=== PATIENT | female | born 1940 | race Caucasian/White ===

== ENCOUNTER 2017-02-05 14:16 | Observation (INO) ==
[2017-02-05] MEDS ORDERED: ASPIRIN 325 MG TABLET PO STA (16:53)
[2017-02-05] MEDS ORDERED: ONDANSETRON 4 MG/2 ML VIAL IV STA (16:53)
[2017-02-05] MEDS ORDERED: NITROGLYCERIN 2% OINT 1 INCH/GM PACK TOP STA (16:53)
[2017-02-05] MEDS ORDERED: MORPHINE 2 MG/1 ML SYRINGE IV STA (16:53)
[2017-02-05] MEDS ORDERED: MORPHINE 2 MG/1 ML SYRINGE ONE (17:15)
[2017-02-05] MEDS ORDERED: NITROGLYCERIN 2% OINT 1 INCH/GM PACK TOP ONE (17:15)
[2017-02-05] MEDS ORDERED: ASPIRIN 325 MG TABLET ONE (17:15)
[2017-02-05] MEDS ORDERED: ONDANSETRON 4 MG/2 ML VIAL ONE (17:15)
--- NOTE | 2017-02-05 17:15 | Emergency Department Note ---
Teto Vences Gwan, am scribing for, and in the presence of, Good Jean-Baptiste MD 17 :12. Estiven Vences Charles R, MD, personally performed the services described in this documentation, ascribed by Joao Irene in my presence, and it is both accurate and complete 715 . Arrival - Arrival Chief Complaint: Chest Pain Stated Complaint: pain around heart ED Nursing Triage Note: pt reports a squeezing type pain below breasts that started four days ago that radiates into her back. pt reports some vomiting and diarrhea over the weekend. was seen at clinic this morning and had an ekg and told to go to er. Mode of Arrival: Ambulatory Limitations: No Limitations Source: Patient, Old Records Reviewed, RN Notes Reviewed - History of Present Illness HPI Narrative: Patient is a 76 y/o female who presents to the ED with a c/o squeezing chest pain with an onset 5 days ago. Pt has a PMHx of CAD, NIDDM, stent and HTN. Patient stated that her pain begins on both of her sides and radiates to her chest just below her breast and to her back. She describes this pain as intermittent and severe. She continued to note that the discomfort is worse when she lays flat and when she takes a deep breathe. Patient stated that she has taken Maalox and baking soda to help relieve discomfort with no relief. Her associated sxs have been V/D. She reports that she has f/u with her PCP this morning and has received an EKG. S/P results at PCP office, she was prompted to report to ED for further evaluation. Patient confirmed that she is followed by Dr. Hess and she denies any hx of heart attack. During exam, pt was awake and alert and did not appear to be in any distress. Onset (ago): day(s) Consistency: constant Severity: moderate Allergies/Adverse Reactions: Allergies Allergy/AdvReac Type Severity Reaction Status Date / Time No Known Allergies Allergy Unverified 04/14/15 07:56 Home Medications: Home Medications Medication Instructions Recorded Confirmed Type Clopidogrel [Plavix] 75 mg PO DAILY 04/14/15 02/05/17 History Losartan/Hydrochlorothiazide 100 mg PO DAILY 04/14/15 02/05/17 History [Losartan-Hctz 100-12.5 mg Tab] Metoprolol Tartrate 100 mg PO BID 04/14/15 02/05/17 History Insulin Glargine,Hum.rec.anlog 60 unit SUBCUT DAILY 02/05/17 02/05/17 History [Toujeo SoloStar] Isosorbide Mononitrate [Isosorbide 30 mg PO QAM 02/05/17 02/05/17 History Mononitrate ER] Linagliptin [Tradjenta] 5 mg PO DAILY 02/05/17 02/05/17 History Nitroglycerin Sl Tab [Nitrostat] 0.4 mg SL Q5M PRN 02/05/17 02/05/17 History Potassium Chloride 8 meq PO DAILY 02/05/17 02/05/17 History Pregabalin [Lyrica] 50 mg PO DAILY 02/05/17 02/05/17 History glipiZIDE XL [Glucotrol Xl] 10 mg PO BID 02/05/17 02/05/17 History metFORMIN [Glucophage] 1,000 mg PO BID 02/05/17 02/05/17 History Review of System - Review of System 12 point system: reviewed and no additional remarkable complaints except as stated - Review of System Constitutional: Absent: chills, fever Eyes: Absent: discharge, pain Head/Ears/Nose/Throat: Absent: earache Respiratory: Absent: cough Cardiovascular: Present: as per HPI, chest pain Gastrointestinal: Present: as per HPI, vomiting, diarrhea. Absent: abdominal pain Genitourinary female: Absent: abnormal menses, dysuria Musculoskeletal: Absent: arm pain, back pain, leg pain, neck pain Skin: Absent: rash, lesions Neurological: Absent: headache, weakness Psychiatric: Absent: anxiety, depression Medical,Surgical,& Family Hx - Medical History Cardio: History of: CAD, Hypertension Endocrine: History of: Diabetes Mellitus (NIDDM) Genitourinary: History of: Recurring Urinary Tract Infections - Surgical History Cardiac Surgeries: Sugical HX of: Cardiac Catheterization (stent x 1) Abdominal Surgeries: Surgical HX of: Appendectomy, Cholecystectomy Reproductive Surgeries: Surgical HX of;: Hysterectomy - Social History Smoking Status: Never smoker Exam Vital Signs: Vital Signs Temperature 98.1 F 02/05/17 16:06 Pulse Rate 77 02/05/17 16:06 Respiratory Rate 18 02/05/17 16:06 Blood Pressure 151/78 02/05/17 16:06 O2 Sat by Pulse Oximetry 97 02/05/17 14:47 - General General appearance: alert, in no apparent distress - Head Head exam: Present: atraumatic, normocephalic - Eye Eye exam: Present: normal appearance, PERRL, EOMI - ENT ENT exam: Present: normal oropharynx, mucous membranes moist, TM's normal bilaterally, normal external ear exam - Neck Neck exam: Present: full ROM, trachea midline. Absent: tenderness - Chest Chest inspection: Present: symmetric chest wall rise. Absent: tenderness - Respiratory Respiratory exam: Present: normal lung sounds bilaterally. Absent: respiratory distress - Cardiovascular Cardiovascular exam: Present: regular rate, normal rhythm, normal heart sounds. Absent: murmur - Abdominal Exam Abdominal exam: Present: soft, normal bowel sounds. Absent: distention, tenderness - Extremities Exam Extremities exam: Present: full ROM, other (+1 edema bilateraly to LE). Absent : tenderness - Back Exam Back exam: Present: full ROM, tenderness (tenderness to T-12 area) - Neurological Exam Neurological exam: Present: alert, oriented X3, CN II-XII intact. Absent: motor sensory deficit - Psychiatric Psychiatric exam: Present: normal affect, normal mood - Skin Skin exam: Present: warm, dry, intact, normal color Course - Consultations Consultation #1: Hospitalist will admit patient Time: 20:08 Results - Labs CBC & BMP: 02/05/17 17:41 02/05/17 17:41 Lab Results: I have reviewed the patients labs Labs: Laboratory Tests 02/05/17 02/05/17 02/05/17 17:41 17:41 17:41 WBC 6.6 RBC 4.99 Hgb 11.5 L Hct 37.8 MCV 75.8 L MCH 23 L MCHC 30.4 L RDW 18.0 H Plt Count 248 INR 1.0 PT Patient/Control Mix 10.2 Sodium 144 Potassium 4.0 Chloride 107 Carbon Dioxide 29 BUN 15 Creatinine 1.00 Glucose 148 H Troponin I Lipase 178.0 Laboratory Tests 02/05/17 17:41 Troponin I 0.064 H Laboratory Tests 02/05/17 02/05/17 02/05/17 17:41 17:41 17:41 Sodium 144 Potassium 4.0 Chloride 107 Carbon Dioxide 29 BUN 15 Creatinine 1.00 Glucose 148 H Troponin I 0.064 H B-Natriuretic Peptide 232 H Lipase 178.0 Disposition Clinical Impression: Chest pain Case discussed with: patient, patient's family Disposition: Still a Patient Condition: Stable Time of Disposition: 20:08
[2017-02-05 17:59] LABS: Basophils # 0.1 10*3/uL (0.0-0.2); Basophils % 0.8 % (0.0-0.8); Eosinophils # 0.2 10*3/uL (0.0-0.87); Eosinophils % 3.2 % (0.00-10.9); Hematocrit 37.8 VOL% (35.7-47.0); Hemoglobin 11.5 GM/DL (12.0-16.0); Immature Granulocytes % 0.5 %; Immature Granulocytes Absolute 0.03 #; Lymphocytes # 2.6 10*3/uL (1.4-4.0); Lymphocytes % 40.3 % (21.3-54.2); Mean Corpuscular HGB Conc 30.4 GM/DL (32-36); Mean Corpuscular Hemoglobin 23 PG (27-34); Mean Corpuscular Volume 75.8 FL (87-102); Mean Platelet Volume 10.1 FL (9.6-12.0); Monocytes # 0.4 10*3/uL (0.11-0.8); Monocytes % 5.5 % (1.7-12.7); Neutrophils # 3.3 10*3/uL (1.4-7.4); Neutrophils % 49.7 % (38.7-73.9); Platelet Count 248 T/CUMM (130-400); Red Blood Count 4.99 MC/CUMM (3.8-5.5); White Blood Count 6.6 T/CUMM (4-12)
[2017-02-05 18:07] LABS: PT Patient Result 10.2 SECS
[2017-02-05 18:12] LABS: Albumin 3.7 G/DL (3.4-5.0); Bilirubin,Total 0.5 MG/DL (0.2-1.0); Calcium 9.1 MG/DL (8.5-10.1); Magnesium 1.8 MG/DL (1.8-2.4); Osmolality,Calculated 289.8 MOS/KG (273-304); Total Protein 6.6 G/DL (6.4-8.3)
[2017-02-05] MEDS ORDERED: INSULIN REGULAR 100 UNIT/ML SUBCUT ONE (20:20)
[2017-02-05] MEDS ORDERED: MORPHINE 2 MG/1 ML SYRINGE IV PRN (20:20)
[2017-02-05] MEDS ORDERED: ENOXAPARIN 40 MG/0.4 ML SYRINGE SUBCUT SCH (20:30)
--- NOTE | 2017-02-05 20:53 | XRay Report ---
XR chest 1V portable Indication: Chest pain. Chest one view: Comparison 02/05/2017. Lungs are markedly hypoinflated with diffusely coarsened interstitial markings when compared to 1213 hours. However, no focal infiltrate is seen at this time. Heart size is normal. Impression: Worsening pulmonary hypoinflation with increasing interstitial prominence of the lungs. Suspect is primarily atelectasis. PROCEDURE INTERPRETED AT [facility] DEPARTMENT OF RADIOLOGY Final Report Signed by: Mason Antonio M.D.
[2017-02-05 21:02] LABS: Risk Ratio 5.37; VLDL CHOLESTEROL 88.6 MG/DL
--- NOTE | 2017-02-05 21:16 | Hospitalist History & Physical ---
Assessment and Plan (1) Diabetes Status: Acute Current Visit: Yes (2) Hypertension Status: Acute Assessment and plan: We will admit patient our service. Patient will be admitted to telemetry. We will put in a consult for [facility] for their evaluation. 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 She has had stents in the past. Draw serial troponins and check a fasting lipid profile. Reevaluate patient in the morning and adjust plans appropriate continue home meds as appropriate Current Visit: Yes History of Present Illness Chief complaint: Chest pain History of present illness: Ms. Esposito is a 76 year old female with past medical history significant for coronary artery disease hypertension and diabetes who was in normal state of health till approximately 5 days ago. Patient's has been noticing chest pain. Is a squeezing sensation radiates around her ribs into her back. She denies diaphoresis or shortness of breath. She had an episode lasting about 20 minutes of nausea vomiting and diarrhea. She says the pains been come and go when she went to go see her nurse practitioner SHIRLEY Espana at the clinic today. Actually felt the patient needed to come up to the hospital for further evaluation. Patient has a slight abnormal normal troponin mildly elevated BNP and some mildly depressed ST segments on her EKG I was consulted to admit her Home Medications Medication Instructions Recorded Confirmed Type Clopidogrel [Plavix] 75 mg PO DAILY 04/14/15 02/05/17 History Losartan/Hydrochlorothiazide 100 mg PO DAILY 04/14/15 02/05/17 History [Losartan-Hctz 100-12.5 mg Tab] Metoprolol Tartrate 100 mg PO BID 04/14/15 02/05/17 History Insulin Glargine,Hum.rec.anlog 60 unit SUBCUT DAILY 02/05/17 02/05/17 History [Toujeo SoloStar] Isosorbide Mononitrate [Isosorbide 30 mg PO QAM 02/05/17 02/05/17 History Mononitrate ER] Linagliptin [Tradjenta] 5 mg PO DAILY 02/05/17 02/05/17 History Nitroglycerin Sl Tab [Nitrostat] 0.4 mg SL Q5M PRN 02/05/17 02/05/17 History Potassium Chloride 8 meq PO DAILY 02/05/17 02/05/17 History Pregabalin [Lyrica] 50 mg PO DAILY 02/05/17 02/05/17 History glipiZIDE XL [Glucotrol Xl] 10 mg PO BID 02/05/17 02/05/17 History metFORMIN [Glucophage] 1,000 mg PO BID 02/05/17 02/05/17 History Allergies Allergy/AdvReac Type Severity Reaction Status Date / Time No Known Allergies Allergy Unverified 04/14/15 07:56 Medical,Surgical,& Family Hx - Medical History Cardio: History of: CAD, Hypertension Endocrine: History of: Diabetes Mellitus (NIDDM) Genitourinary: History of: Recurring Urinary Tract Infections - Surgical History Cardiac Surgeries: Sugical HX of: Cardiac Catheterization (stent x 1) Abdominal Surgeries: Surgical HX of: Appendectomy, Cholecystectomy Reproductive Surgeries: Surgical HX of;: Hysterectomy - Family History Family History: Reports;: Family Cancer - Social History Smoking Status: Never smoker Frequency of Alcohol Use: None Type of Drug Use: None 12 point system: reviewed and no additional remarkable complaints except as stated Exam - Constitutional Vitals: Period Temp Pulse Resp BP Sys/Morrow Pulse Ox Last 24 Hr 98.1 F-98.1 F 77-77 18-18 151-151/78-78 97 - General General appearance: alert, in no apparent distress - Head Head exam: Present: atraumatic, normocephalic - Eye Eye exam: Present: normal appearance, PERRL, EOMI - ENT ENT exam: Present: normal oropharynx, mucous membranes moist, TM's normal bilaterally, normal external ear exam - Neck Neck exam: Present: full ROM, trachea midline. - Chest Chest inspection: Present: symmetric chest wall rise. - Respiratory Respiratory exam: Present: normal lung sounds bilaterally - Cardiovascular Cardiovascular exam: Present: regular rate, normal rhythm, normal heart sounds - Abdominal Exam Abdominal exam: Present: soft, normal bowel sounds. - Extremities Exam Extremities exam: Present: full ROM, some lower extremity edema noted - Neurological Exam Neurological exam: Present: alert, oriented X3, CN II-XII intact. - Psychiatric Psychiatric exam: Present: normal affect, normal mood - Skin Skin exam: Present: warm, dry, intact, normal color Results - Labs CBC & BMP: 02/05/17 17:41 02/05/17 17:41
[2017-02-05] MEDS: METOPROLOL TARTRATE 100 MG TABLET PO SCH (23:53)
[2017-02-06] MEDS: NITROGLYCERIN 2% OINT 1 INCH/GM PACK TOP SCH ×4 (01:18→18:11)
[2017-02-06] MEDS ORDERED: ACETAMINOPHEN 325 MG TABLET PO PRN (01:22)
--- NOTE | 2017-02-06 04:24 | EKG Report ---
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
--- NOTE | 2017-02-06 06:31 | EKG Report ---
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
--- NOTE | 2017-02-06 08:07 | EKG Report ---
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
--- NOTE | 2017-02-06 08:32 | Cardiology Consult Note ---
<Monica Fernández E - Last Filed: 02/06/17 08:12> Assessment and Plan - Time spent with patient Time spent with patient: Greater than 30 minutes (1) CAD (coronary artery disease) Status: Chronic Assessment and plan: SEE PLAN OF CARE LISTED BELOW Current Visit: Yes (2) Dyslipidemia Status: Chronic Assessment and plan: SEE PLAN OF CARE LISTED BELOW Current Visit: Yes (3) Chest pain Status: Acute Assessment and plan: SEE PLAN OF CARE LISTED BELOW Current Visit: Yes (4) Diabetes Status: Chronic Assessment and plan: SEE PLAN OF CARE LISTED BELOW Current Visit: Yes (5) Hypertension Status: Chronic Assessment and plan: SEE PLAN OF CARE LISTED BELOW Current Visit: Yes History of Present Illness - Data of Consult Patient: known to practice within the last 3 years Consult date: 02/06/17 Requesting Physician: Mason Hitchcock Primary care physician: Jenny Grier - Consult Narrative Reason for consult: chest pain, known CAD History of present illness: [employer]: DR. HESS Ms. Esposito, 76WF, routinely followed by Dr. Lizzette Hess. She was last seen in cardiology clinic December 26, 2016. Risk factors include: Known coronary artery disease, hypertension, dyslipidemia, diabetes and sedentary lifestyle. History of PSVT, microcytic anemia. Last heart catheterization took place approximately 4 years ago at [facility], requiring PCI. Records have been requested. Last stress test May 25, 2016 revealed the following: Small fixed perfusion abnormality of mild intensity in the inferolateral region. Subtle worsening of this defect with stress when compared to rest. This could be breast attenuation, although a small area of patricia-infarct ischemia cannot be completely excluded. Clinical correlation recommended. Approximately 45 years ago she felt a tightness around her anterior chest where her bra was located. She sought advice from numerous healthcare providers but could never get any answers. Ultimately went to the [facility] and was told that she has costochondritis. She was given NSAIDs and this resolved. Approximately 5 days ago, she began to experience the same type of chest discomfort radiating across her chest under her breasts, radiating to her right flank and upper back area. Described as a squeezing sensation occurring intermittently for the past 5 days. It is not associated with shortness of breath. She is tender to touch under her right and left breasts but not in the flank or upper back area. Seems to be worse when laying down and she insists that walking does not re-create the discomfort. She can identify no aggravating nor any alleviating factors. Rates the discomfort as a 7 on a scale of 1-10. Troponins 0.064 -0.053. EKG reveals nonspecific ST and T-wave abnormality. Patient also reports she has been experiencing near syncope for the past 8-6 months, primarily when walking. She would have no chest discomfort but would feel "faint". She was given isosorbide mononitrate and she considers this to be a "miracle drug". She has not had any additional near syncopal type episodes since starting. Patient does have a history of microcytic anemia. She is scheduled to see Dr. Santana in March 2017. She has been taking iron orally but quit taking several months ago. No obvious black and tarry stools or vomiting of blood. Echo has been ordered, she has received ASA, Plavix, betablocker, nitrate, ARB. Will keep NPO and further discuss with Dr. Pimentel and await additional recommendations. She is not on statin and will clarify if she has true allergy. ASSESSMENT/PLAN: 1. CHEST PAIN - we will keep NPO and discuss with Dr. Pimentel. 2. KNOWN CAD - approximately 4 years ago, at [facility], underwent stenting. Have requested records. 3. HYPERTENSION - will adjust medications accordingly during hospital stay. 4. DYSLIPIDEMIA - total cholesterol 204, HDL, 38, LDL 111, triglycerides 443. Will add medications accordingly. 5. DIABETES - holding metformin. Covering with sliding scale. 6. HISTORY OF PSVT - no PSVT noted while hospitalized. We will continue to observe and monitor. CC: Eveline Doe MD - Home Medications and Allergies Home Medications: Home Medications Medication Instructions Recorded Confirmed Type Clopidogrel [Plavix] 75 mg PO DAILY 04/14/15 02/05/17 History Losartan/Hydrochlorothiazide 100 mg PO DAILY 04/14/15 02/05/17 History [Losartan-Hctz 100-12.5 mg Tab] Metoprolol Tartrate 100 mg PO BID 04/14/15 02/05/17 History Insulin Glargine,Hum.rec.anlog 60 unit SUBCUT DAILY 02/05/17 02/05/17 History [Doris Roper] Isosorbide Mononitrate [Isosorbide 30 mg PO QAM 02/05/17 02/05/17 History Mononitrate ER] Linagliptin [Tradjenta] 5 mg PO DAILY 02/05/17 02/05/17 History Nitroglycerin Sl Tab [Nitrostat] 0.4 mg SL Q5M PRN 02/05/17 02/05/17 History Potassium Chloride 8 meq PO DAILY 02/05/17 02/05/17 History Pregabalin [Lyrica] 50 mg PO DAILY 02/05/17 02/05/17 History glipiZIDE XL [Glucotrol Xl] 10 mg PO BID 02/05/17 02/05/17 History metFORMIN [Glucophage] 1,000 mg PO BID 02/05/17 02/05/17 History Allergies/Adverse Reactions: Allergies Allergy/AdvReac Type Severity Reaction Status Date / Time No Known Allergies Allergy Unverified 04/14/15 07:56 Review of systems: REVIEW OF SYSTEMS: - Constitutional Constitutional: Present: Fatigue, near syncope. Absent: anorexia, night sweats - EENT Eyes: Absent: blurry vision, loss of vision, diplopia Ears: Absent: decreased hearing, ear pain, ear discharge - Cardiovascular Cardiovascular: Present: chest pain at various times without dyspnea on exertion. Occasional right foot edema, none recent occasional palpitations. Absent: chest pain with deep breath, claudication - Respiratory Respiratory: Denies: MCCAU[place], cough. Absent: wheezing, hemoptysis, change in phlegm color - Gastrointestinal Gastrointestinal: Denies: constipation. Absent: abdominal pain, hematemesis, hematochezia, melena, change in bowel habits, nausea - Genitourinary Genitourinary: Absent: difficulty urinating, dysuria, urinary hesitancy, flank pain - Musculoskeletal Musculoskeletal: Present: back pain Absent: joint swelling, muscle cramps, muscle weakness - Neurological Neurological: Present: normal gait without frequent falls. Absent: dizziness, hemiparesis - Psychiatric Psychiatric: Absent: anxiety, depression, difficulty concentrating - Endocrine Endocrine: Present: fatigue. Absent: cold intolerance, heat intolerance, polyuria, polyphagia, polydipsia - Hematologic/Lymphatic Hematologic/Lymphatic: Present: easy bruising. Absent: easy bleeding -Integumentary Integumentary: Absent: lesions, rashes, skin breakdown Medical,Surgical,& Family Hx - Medical History Cardio: History of: CAD, Hypertension Endocrine: History of: Diabetes Mellitus (NIDDM) Genitourinary: History of: Recurring Urinary Tract Infections Musculoskeletal: History of: Back/Neck Problems (cervical fusions) - Surgical History Cardiac Surgeries: Sugical HX of: Cardiac Catheterization (stent x 1) Thoracic Surgeries: Patient denies;: Lobectomy Neurologic Surgeries: Patient denies: Neurologic Surgery Abdominal Surgeries: Surgical HX of: Appendectomy, Cholecystectomy Reproductive Surgeries: Surgical HX of;: Section (x 3), Hysterectomy - Family History Family History: Reports;: Family Cancer - Social History Smoking Status: Never smoker Have you smoked in the last 12 months: No Frequency of Alcohol Use: None Type of Drug Use: None Marital Status: Lives With:: Alone Functional capacity: independent ambulation Physical Examination Vital Signs Temp Pulse Resp BP Pulse Ox 98.1 F 77 18 151/78 97 02/05/17 14:47 02/05/17 14:47 02/05/17 14:47 02/05/17 14:47 02/05/17 14:47 General: [Appears well with no apparent distress.] [Pleasant and cooperative. ] [Appears comfortable.] HEENT: [PERRL, normocephalic, atraumatic. Mucous membranes moist. No jaundice noted. Conjunctiva moist and clear, sclerae anicteric] Neck: No JVD/HJR, no thyromegaly or lymphadenopathy noted. No carotid bruit appreciated Cardiac: [Regular rate and rhythm.] [No obvious murmur rub or gallop.] Lungs: [Clear to auscultation without accessory muscle use to assist the respiratory pattern.] Not requiring oxygen Abdomen: Soft, bowel sounds normoactive. Nontender and nondistended. No abdominal bruit or thrill noted. No masses noted. Musculoskeletal: No fluid collection. Decreased range of motion is noted. Extremities: No clubbing, cyanosis noted. [ No edema noted.] Upper extremity pulses 2+. Lower extremity pulses 2+. Capillary refill less than 3 seconds. Skin: No unusual lesions or rashes. No skin breakdown appreciated. Neuro: Awake, alert and oriented 3. Moves all extremities well without hemiparesis or paralysis. No essential tremor is appreciated. Result/EKG - Labs CBC & BMP: 02/05/17 17:41 02/05/17 17:41 Lab Results: I have reviewed the past 24 hour labs Labs: Laboratory Results - last 24 hr 02/05/17 02/05/17 02/05/17 17:41 17:41 17:41 WBC RBC Hgb Hct MCV MCH MCHC RDW Plt Count MPV Neut % (Auto) Lymph % (Auto) Hoke % (Auto) Eos % (Auto) Baso % (Auto) Neut # (Auto) Lymph # (Auto) Hoke # (Auto) Eos # (Auto) Baso # (Auto) Immature Gran % Nucleated RBC % Immature Gran # Nucleated RBCs # INR 1.0 PT Patient/Control Mix 10.2 Sodium 144 Potassium 4.0 Chloride 107 Carbon Dioxide 29 Anion Gap 12.0 BUN 15 Creatinine 1.00 GFR Calculation 59 BUN/Creatinine Ratio 15.00 Glucose 148 H Calculated Osmolality 289.8 Calcium 9.1 Magnesium 1.8 Total Bilirubin 0.50 AST 24 ALT 23 Alkaline Phosphatase 71 Troponin I B-Natriuretic Peptide 232 H Total Protein 6.6 Albumin 3.7 Globulin 2.9 Albumin/Globulin Ratio 1.2 Triglycerides Cholesterol LDL Cholesterol VLDL Cholesterol HDL Cholesterol Heart Disease Risk Ratio Lipase 178.0 02/05/17 02/05/17 02/05/17 17:41 17:41 17:41 WBC 6.6 RBC 4.99 Hgb 11.5 L Hct 37.8 MCV 75.8 L MCH 23 L MCHC 30.4 L RDW 18.0 H Plt Count 248 MPV 10.1 Neut % (Auto) 49.7 Lymph % (Auto) 40.3 Hoke % (Auto) 5.5 Eos % (Auto) 3.2 Baso % (Auto) 0.8 Neut # (Auto) 3.3 Lymph # (Auto) 2.6 Hoke # (Auto) 0.4 Eos # (Auto) 0.2 Baso # (Auto) 0.1 Immature Gran % 0.5 Nucleated RBC % 0.0 Immature Gran # 0.03 Nucleated RBCs # 0.00 INR PT Patient/Control Mix Sodium Potassium Chloride Carbon Dioxide Anion Gap BUN Creatinine GFR Calculation BUN/Creatinine Ratio Glucose Calculated Osmolality Calcium Magnesium Total Bilirubin AST ALT Alkaline Phosphatase Troponin I 0.064 H B-Natriuretic Peptide Total Protein Albumin Globulin Albumin/Globulin Ratio Triglycerides 443 H Cholesterol 204 H LDL Cholesterol 111.0 VLDL Cholesterol 88.6 HDL Cholesterol 38 L Heart Disease Risk Ratio 5.37 Lipase 02/05/17 02/05/17 20:45 23:27 WBC RBC Hgb Hct MCV MCH MCHC RDW Plt Count MPV Neut % (Auto) Lymph % (Auto) Hoke % (Auto) Eos % (Auto) Baso % (Auto) Neut # (Auto) Lymph # (Auto) Hoke # (Auto) Eos # (Auto) Baso # (Auto) Immature Gran % Nucleated RBC % Immature Gran # Nucleated RBCs # INR PT Patient/Control Mix Sodium Potassium Chloride Carbon Dioxide Anion Gap BUN Creatinine GFR Calculation BUN/Creatinine Ratio Glucose Calculated Osmolality Calcium Magnesium Total Bilirubin AST ALT Alkaline Phosphatase Troponin I 0.070 H 0.053 H D B-Natriuretic Peptide Total Protein Albumin Globulin Albumin/Globulin Ratio Triglycerides Cholesterol LDL Cholesterol VLDL Cholesterol HDL Cholesterol Heart Disease Risk Ratio Lipase - Diagnostic Findings Procedure: Chest x-ray: report reviewed by me - EKG EKG results: interpreted by me EKG shows: sinus rhythm <Yanna Pimentel - Last Filed: 02/06/17 08:48> Assessment and Plan - Time spent with patient Time spent with patient: Greater than 30 minutes (exam, interview, documentation , discussion with other provides and orders.) (1) GERD (gastroesophageal reflux disease) Status: Acute Assessment and plan: This is new onset and associated with what honestly sounds like atypical chest pain with EKG changes she needs left heart cath. [id number] preparations for reflux did not seem to alter her pain nor did sublingual nitroglycerin Current Visit: Yes (2) Chest pain Status: Acute Current Visit: Yes Qualifiers: Ischemic chest pain type: unstable angina pectoris (3) Diabetes Status: Acute Current Visit: Yes (4) Hypertension Status: Chronic Current Visit: Yes Qualifiers: Hypertension type: essential hypertension Qualified Code(s): I10 - Essential (primary) hypertension (5) CAD (coronary artery disease) Status: Chronic Current Visit: Yes Qualifiers: Coronary Disease-Associated Artery/Lesion type: pilot station artery [place] vs. transplanted heart: pilot station heart Associated angina: with unstable angina Qualified Code(s): I25.110 - Atherosclerotic heart disease of [place] coronary artery with unstable angina pectoris (6) Dyslipidemia Status: Chronic Current Visit: Yes History of Present Illness - Consult Narrative History of present illness: Ms. Esposito is a 76 year old female whom I saw and examined with Ms. Monica Fernández NP. The patient is a very confusing story as outlined above. She has had at sometimes what sounds like typical pain at sometimes what sounds like atypical pain but she has an abnormal EKG and known coronary artery disease this is all on the background of new onset "heartburn" which she has never had a tightness around her chest like her bra was too tight. It is very clear that we must remove coronary artery disease from the cause of her symptoms. She had PCI 4 years ago at [facility] she does not have her stent card we do not have those records. This does not appear to be related to exertion but she has an equivocal stress test and initially long-acting nitrates made her feel better. I discussed with the patient and recommended left heart catheterization and possible PCI she is agreeable. She has EKG changes that would suggest most likely high lateral changes they are seen in lead I and aVL but also seen in lead II. CC: Eveline Doe MD Review of systems: Chest pain as above in the history of present illness does not necessarily seem to be related to exertion but is been nocturnal and not let her sleep for the last sleep for the last several nights. - Cardiovascular Cardiovascular: Present: chest pain at rest, chest pain with activity - Gastrointestinal Gastrointestinal: Present: abdominal pain, diarrhea, nausea, vomiting Physical Examination Vital Signs Temp Pulse Resp BP Pulse Ox 98.1 F 77 18 151/78 97 02/05/17 14:47 02/05/17 14:47 02/05/17 14:47 02/05/17 14:47 02/05/17 14:47 I agree with the above Result/EKG - Labs CBC & BMP: 02/05/17 17:41 02/05/17 17:41 Labs: Laboratory Results - last 24 hr 02/05/17 02/05/17 02/05/17 17:41 17:41 17:41 WBC RBC Hgb Hct MCV MCH MCHC RDW Plt Count MPV Neut % (Auto) Lymph % (Auto) Hoke % (Auto) Eos % (Auto) Baso % (Auto) Neut # (Auto) Lymph # (Auto) Hoke # (Auto) Eos # (Auto) Baso # (Auto) Immature Gran % Nucleated RBC % Immature Gran # Nucleated RBCs # INR 1.0 PT Patient/Control Mix 10.2 Sodium 144 Potassium 4.0 Chloride 107 Carbon Dioxide 29 Anion Gap 12.0 BUN 15 Creatinine 1.00 GFR Calculation 59 BUN/Creatinine Ratio 15.00 Glucose 148 H POC Glucose Calculated Osmolality 289.8 Calcium 9.1 Magnesium 1.8 Total Bilirubin 0.50 AST 24 ALT 23 Alkaline Phosphatase 71 Troponin I B-Natriuretic Peptide 232 H Total Protein 6.6 Albumin 3.7 Globulin 2.9 Albumin/Globulin Ratio 1.2 Triglycerides Cholesterol LDL Cholesterol VLDL Cholesterol HDL Cholesterol Heart Disease Risk Ratio Lipase 178.0 02/05/17 02/05/17 02/05/17 17:41 17:41 17:41 WBC 6.6 RBC 4.99 Hgb 11.5 L Hct 37.8 MCV 75.8 L MCH 23 L MCHC 30.4 L RDW 18.0 H Plt Count 248 MPV 10.1 Neut % (Auto) 49.7 Lymph % (Auto) 40.3 Hoke % (Auto) 5.5 Eos % (Auto) 3.2 Baso % (Auto) 0.8 Neut # (Auto) 3.3 Lymph # (Auto) 2.6 Hoke # (Auto) 0.4 Eos # (Auto) 0.2 Baso # (Auto) 0.1 Immature Gran % 0.5 Nucleated RBC % 0.0 Immature Gran # 0.03 Nucleated RBCs # 0.00 INR PT Patient/Control Mix Sodium Potassium Chloride Carbon Dioxide Anion Gap BUN Creatinine GFR Calculation BUN/Creatinine Ratio Glucose POC Glucose Calculated Osmolality Calcium Magnesium Total Bilirubin AST ALT Alkaline Phosphatase Troponin I 0.064 H B-Natriuretic Peptide Total Protein Albumin Globulin Albumin/Globulin Ratio Triglycerides 443 H Cholesterol 204 H LDL Cholesterol 111.0 VLDL Cholesterol 88.6 HDL Cholesterol 38 L Heart Disease Risk Ratio 5.37 Lipase 02/05/17 02/05/17 02/06/17 20:45 23:27 08:11 WBC RBC Hgb Hct MCV MCH MCHC RDW Plt Count MPV Neut % (Auto) Lymph % (Auto) Hoke % (Auto) Eos % (Auto) Baso % (Auto) Neut # (Auto) Lymph # (Auto) Hoke # (Auto) Eos # (Auto) Baso # (Auto) Immature Gran % Nucleated RBC % Immature Gran # Nucleated RBCs # INR PT Patient/Control Mix Sodium Potassium Chloride Carbon Dioxide Anion Gap BUN Creatinine GFR Calculation BUN/Creatinine Ratio Glucose POC Glucose 146 H Calculated Osmolality Calcium Magnesium Total Bilirubin AST ALT Alkaline Phosphatase Troponin I 0.070 H 0.053 H D B-Natriuretic Peptide Total Protein Albumin Globulin Albumin/Globulin Ratio Triglycerides Cholesterol LDL Cholesterol VLDL Cholesterol HDL Cholesterol Heart Disease Risk Ratio Lipase - EKG EKG results: interpreted by me EKG shows: sinus rhythm (TWI that is new in I, aVL and II)
[2017-02-06] MEDS ORDERED: POTASSIUM CHLORIDE RIDER 10 MEQ in PREMIX 1 EACH IV PRN (08:40)
[2017-02-06] MEDS ORDERED: MAGNESIUM SULF RIDER 2 GM in PREMIX 1 EACH IV PRN (08:40)
[2017-02-06] MEDS ORDERED: diphenhydrAMINE CAP 25 MG CAPSULE PO ONE (08:40)
[2017-02-06] MEDS ORDERED: DIAZEPAM 5 MG TABLET PO ONE (08:40)
[2017-02-06] MEDS ORDERED: hydroCHLOROthiazide 12.5 MG CAPSULE PO SCH (09:00)
[2017-02-06] MEDS ORDERED: HEPARIN/NACL 0.9% 2 UNITS/ML 1,000 ML IV ONE (09:50)
[2017-02-06] MEDS ORDERED: LIDOCAINE 1% 20 ML VIAL ONE (09:50)
[2017-02-06] MEDS: LOSARTAN 50 MG TABLET PO SCH (09:54)
[2017-02-06] MEDS: PREGABALIN 50 MG CAPSULE PO SCH (09:54)
[2017-02-06] MEDS: POTASSIUM CHLORIDE 8 MEQ CAPSULE PO SCH (09:54)
[2017-02-06] MEDS: PANTOPRAZOLE 40 MG TABLET PO SCH (09:55)
[2017-02-06] MEDS: CLOPIDOGREL 75 MG TABLET PO SCH (09:55)
[2017-02-06] MEDS: ISOSORBIDE MONONITRATE 30 MG TABLET PO SCH (09:55)
[2017-02-06] MEDS: SODIUM CHLORIDE 0.45% 1,000 ML IV SCH (09:55)
[2017-02-06] MEDS: ASPIRIN EC 325 MG TABLET PO SCH (09:55)
[2017-02-06] MEDS: METOPROLOL TARTRATE 100 MG TABLET PO SCH ×2 (09:55→21:13)
[2017-02-06] MEDS ORDERED: MIDAZOLAM 2 MG/2 ML VIAL ONE (10:13)
[2017-02-06] MEDS ORDERED: HYDROmorphone 2 MG/1 ML VIAL ONE (10:13)
[2017-02-06] MEDS ORDERED: VERAPAMIL 5 MG/2 ML VIAL ONE (10:29)
[2017-02-06] MEDS ORDERED: BIVALIRUDIN 250 MG VIAL IV ONE (10:49)
[2017-02-06] MEDS ORDERED: NITROGLYCERIN DRIP 50 MG/250 ML BOTTLE IV ONE (11:21)
[2017-02-06] MEDS ORDERED: CLOPIDOGREL 300 MG TABLET ONE (11:33)
--- NOTE | 2017-02-06 11:38 | Cardiac Catheterization ---
Date of Procedure:: 02/06/17 Procedure: CLINICAL SUMMARY: The patient has known coronary artery disease and presented with symptoms of unstable angina. She is undergoing cardiac catheterization for definitive coronary artery assessment and possible revascularization. PROCEDURES PERFORMED: 1. Right femoral percutaneous arteriotomy 2. Left heart catheterization. 3. Resting hemodynamics. 4. Left ventriculography. 5. Coronary arteriography. 6. Right femoral arteriogram. 7. Angio-Seal closure of the right femoral artery. DESCRIPTION OF PROCEDURE: After obtaining informed consent, the patient was brought to the cardiac catheterization lab where the right groin was prepped and draped in the usual sterile manner. Using IV sedation, local anesthesia, and Modified Seldinger technique, a needle was placed in the right femoral artery and a sheath was positioned without difficulty. A left coronary catheter was advanced over a guidewire under fluoroscopic control to the ascending aorta where angiograms of the left coronary artery were undertaken in multiple views. After adequate angiograms, this catheter was withdrawn and a right coronary catheter was advanced over a guidewire under fluoroscopic control to the ascending aorta with angiograms of the RCA were undertaken in numerous projections. After adequate angiograms, this catheter was removed and a pigtail ventriculographic catheter was advanced over a guidewire under fluoroscopic control to the aortic valve and left ventricular pressures were measured. After adequate pressures were measured, this catheter was used to perform left ventriculography in the [place]AL[place] projection. This catheter was then withdrawn under hemodynamic monitoring and removed from the patient. We then proceeded directly to percutaneous coronary intervention. We engaged the left main coronary artery with a EBU 3.75 interventional guide. We passed a PT Graphix wire beyond the area of stenosis in the circumflex artery and first obtuse marginal branch. We then performed balloon angioplasty with a 3.0 x 12 mm [place] angioplasty balloon in the first obtuse marginal branch and in the proximal to mid circumflex artery. We then placed a 3.0 x 12 mm Xience alpine drug-eluting stent in the proximal segment of the first obtuse marginal branch. The distal portion of the stent was placed in overlapping fashion with a previously placed obtuse marginal stent. An excellent angiographic result was achieved with no significant residual stenosis. We then placed a 3.25 x 12 mm Xience alpine drug-eluting stent in the proximal to mid circumflex coronary artery. An excellent angiographic result was achieved with no significant residual stenosis at the site of intervention. We then pulled back our coronary wire and advanced it down the left anterior descending coronary artery to facilitate intervention on the LAD. We placed a 2.75 x 18 mm Xience alpine drug-eluting stent in this vessel which was inflated to 15 mmHg. Follow-up angiography showed an excellent result at the site of intervention. There was some mild residual stenosis just distal to the stent. We used the stent balloon to perform balloon inflation at the distal and proximal edges of the stent with a good angiographic result. After the intervention, a right femoral arteriogram was performed showing adequate sheath placement for closure device deployment. The sheath was then removed and an Angio-Seal device was used to obtain hemostasis. The patient was transferred back to the room having suffered no immediate complications. HEMODYNAMICS: See the accompanying data sheet. CORONARY ARTERIOGRAPHY: LEFT MAIN: The left main coronary artery is a large caliber vessel, which bifurcates into the left anterior descending and left circumflex coronary arteries. The left main coronary artery has no significant obstructive disease. LEFT CIRCUMFLEX: The left circumflex coronary artery is a large-caliber vessel which gives off a large obtuse marginal branch. There is a focal 95% stenosis in the proximal to mid circumflex coronary artery. There is also a stenosis of 90% or more in the proximal segment of the first obtuse marginal branch, just proximal to a previously placed stent. LEFT ANTERIOR DESCENDING: The left anterior descending artery is a moderate to large caliber vessel which gives off for small diagonal branches proximally and a moderate-sized diagonal branch in its mid segment. There is diffuse moderate disease throughout the left anterior descending coronary artery of up to 40% proximally and up to 70% in its mid segment. There may be significant disease at the origin of 3 of the smaller diagonal branches as well, but these do not appear to be good targets for intervention. RIGHT CORONARY ARTERY: The right coronary artery is a large-caliber vessel which gives off the posterior descending artery and the posterior lateral system. There is a stenosis of about 50% in the proximal to mid right coronary artery. At the bifurcation of the posterior descending artery and posterolateral branch there is a stenosis of around 40-50%. The proximal posterior descending coronary artery has sequential 80-90% stenoses just proximal to a bifurcation point. LEFT VENTRICULOGRAPHY: Left ventricular ejection fraction is estimated at 60-65 % with normal regional wall motion. PERIPHERAL ARTERIOGRAPHY: Right femoral arteriogram shows a normal right iliofemoral artery with adequate sheath placement for closure device deployment. IMPRESSIONS: 1. Severe three-vessel coronary artery disease as described above. 2. Successful stenting of the left circumflex coronary artery system with a 3.0 x 12 mm Xience alpine drug-eluting stent placed in the obtuse marginal branch and a 3.25 x 12 mm Xience alpine drug-eluting stent placed in the proximal to mid circumflex coronary artery. 3. Successful percutaneous coronary intervention to the mid left anterior descending coronary artery with a 2.75 x 15 mm Xience alpine drug-eluting stent inflated to 18 hilda pressure. 4. Significant residual disease in the right coronary artery system as described above. 5. Preserved left ventricular systolic function. PLAN: The patient will be transferred to her room for postintervention monitoring and recovery. At some point intervention on the right coronary artery could be considered if clinically indicated. For now we will continue aggressive medical management and risk factor modification. The case was discussed with Dr. Pimentel, who also reviewed the films prior to intervention. Anesthesia: minimal conscious sedation Surgeon / Physician: Moi Miller Estimated blood loss: minimal Condition: stable Disposition: floor - Medications / Follow-up
--- NOTE | 2017-02-06 12:30 | EKG Report ---
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
--- NOTE | 2017-02-06 16:16 | Hospitalist Progress Note ---
Assessment and Plan (1) Chest pain Status: Acute Assessment and plan: s/p cardiac stent times 3 to LAD and left circumflex Current Visit: Yes (2) Diabetes Status: Acute Assessment and plan: BS stable Current Visit: Yes (3) Hypertension Status: Chronic Assessment and plan: metoprolol 100 mg po bid, losartan and isosorbide mononitrate Current Visit: Yes Qualifiers: Hypertension type: essential hypertension Qualified Code(s): I10 - Essential (primary) hypertension Hospitalist: Subjective Interval history: Saw patient before going down for heart cath. No chest pain Exam - Constitutional Vitals: Period Temp Pulse Resp BP Sys/Morrow Pulse Ox Last 24 Hr 96.0 F-98.2 F 60-100 16-20 107-150/43-76 92-100 Exam: Heart Rate-[RRR] Lungs-[CTAB] GI-[+bs soft, NT] Ext-[no edema] Neuro [Motor 5/5], [alert and oriented times 3] psych [normal mood and affect] General [no acute distress] Results - Labs CBC & BMP: 02/05/17 17:41 02/05/17 17:41 Lab Results: I have reviewed the past 24 hour labs
[2017-02-07] MEDS: SODIUM CHLORIDE 0.45% 1,000 ML IV SCH ×2 (00:32→12:01)
[2017-02-07] MEDS: NITROGLYCERIN 2% OINT 1 INCH/GM PACK TOP SCH ×3 (03:04→12:01)
[2017-02-07 05:32] LABS: Basophils % 0.3 % (0.0-0.8); Eosinophils # 0.2 10*3/uL (0.0-0.87); Eosinophils % 3.3 % (0.00-10.9); Hematocrit 34.4 VOL% (35.7-47.0); Hemoglobin 10.7 GM/DL (12.0-16.0); Immature Granulocytes % 0.3 %; Immature Granulocytes Absolute 0.02 #; Lymphocytes # 1.6 10*3/uL (1.4-4.0); Lymphocytes % 22.1 % (21.3-54.2); Mean Corpuscular HGB Conc 31.1 GM/DL (32-36); Mean Corpuscular Hemoglobin 24 PG (27-34); Mean Corpuscular Volume 75.4 FL (87-102); Mean Platelet Volume 10.7 FL (9.6-12.0); Monocytes # 0.5 10*3/uL (0.11-0.8); Monocytes % 6.3 % (1.7-12.7); Neutrophils # 4.9 10*3/uL (1.4-7.4); Neutrophils % 67.7 % (38.7-73.9); Platelet Count 198 T/CUMM (130-400); Red Blood Count 4.56 MC/CUMM (3.8-5.5); White Blood Count 7.3 T/CUMM (4-12)
[2017-02-07 06:06] LABS: Calcium 8.4 MG/DL (8.5-10.1); Magnesium 1.8 MG/DL (1.8-2.4); Osmolality,Calculated 281.3 MOS/KG (273-304); Potassium 4.3 MMOL/L (3.5-5.1)
[2017-02-07 06:15] LABS: Troponin I Only 0.206 NG/ML (0.00-0.045)
--- NOTE | 2017-02-07 07:39 | EKG Report ---
Stationary ECG Study [facility] Test Date: 02/07/2017 7:38:44 AM Pat Name: ERIN LEO Department: Room: 285 Gender: F Communications Maintainer: JESSICA : 1940 Requested by: Jose Prater Order Number: [id number] Reading MD: NIMESH SALGADO Intervals [place] Rate: 65 P: -9 TX: 208 QRS: 7 QRSD: 88 T: 93 QT: 404 QTc: 416 Interpretive Statements SINUS RHYTHM MINIMAL ST DEPRESSION Electronically Signed On 02-08-17 08:08:57 CDT by NIMESH SALGADO [email or web address]
[2017-02-07 07:56] VITALS: BP 123/75
--- NOTE | 2017-02-07 08:24 | Cardiology Progress Note ---
Assessment and Plan (1) GERD (gastroesophageal reflux disease) Status: Acute Assessment and plan: n Current Visit: Yes (2) Diabetes Status: Acute Current Visit: Yes (3) Hypertension Status: Chronic Current Visit: Yes Qualifiers: Hypertension type: essential hypertension Qualified Code(s): I10 - Essential (primary) hypertension (4) CAD (coronary artery disease) Status: Chronic Assessment and plan: Her chest pain clearly represented unstable angina. She is much better status post PCI. Current Visit: Yes Qualifiers: Coronary Disease-Associated Artery/Lesion type: [place] artery [place] vs. transplanted heart: [place] heart Associated angina: with unstable angina Qualified Code(s): I25.110 - Atherosclerotic heart disease of [place] coronary artery with unstable angina pectoris (5) Dyslipidemia Status: Chronic Current Visit: Yes (6) Unstable angina pectoris Status: Acute Assessment and plan: Status post PCI left circumflex and left anterior descending artery as below: 1. Successful stenting of the left circumflex coronary artery system with a 3.0 x 12 mm Xience alpine drug-eluting stent placed in the obtuse marginal branch and a 3.25 x 12 mm Xience alpine drug-eluting stent placed in the proximal to mid circumflex coronary artery. 2. Successful percutaneous coronary intervention to the mid left anterior descending coronary artery with a 2.75 x 15 mm Xience alpine drug-eluting stent inflated to 18 hilda pressure. Current Visit: Yes Cardiology - PN: Subj Interval history: Ms. Esposito has no complaints this morning she states "I am ready to go home. . . I feel good." Patient has no complaints overnight her biomarkers are unremarkable her labs all look good her access site looks good. I discussed with her the importance of continuing her dual antiplatelet therapy. I recommended that she follow-up with Dr. Hess in 2 weeks. From a cardiovascular standpoint the patient may be discharged home. We have nothing further to add at this time and we will sign off. Exam (Progress Note) - Constitutional Vitals: Period Temp Pulse Resp BP Sys/Morrow Pulse Ox Last 24 Hr 97.2 F-98.9 F 60-97 16-20 111-150/51-75 92-96 General appearance: normal weight - Eye Eye exam: Present: EOMI Pupils: Present: PATTI - ENT ENT exam: Present: normal exam - Neck Neck exam: Present: normal inspection - Respiratory Respiratory exam: Present: clear to auscultation bilaterally - Cardiovascular Cardiovascular exam: Present: regular rate and rhythm - GI/Abdominal GI/Abdominal exam: Present: normal bowel sounds - Extremities Exam Extremities exam: Present: normal inspection - Back Exam Back exam: Present: normal inspection - Neurological Exam Neurological exam: Present: alert, oriented X3 - Psychiatric Psychiatric exam: Present: normal affect, normal mood - Skin Skin exam: Present: normal color, warm Result/EKG - Labs CBC & BMP: 02/07/17 04:36 02/07/17 04:37 Labs: Laboratory Results - last 24 hr 02/06/17 02/06/17 02/06/17 08:11 15:44 19:18 WBC RBC Hgb Hct MCV MCH MCHC RDW Plt Count MPV Neut % (Auto) Lymph % (Auto) [place] % (Auto) Eos % (Auto) Baso % (Auto) Neut # (Auto) Lymph # (Auto) [place] # (Auto) Eos # (Auto) Baso # (Auto) Immature Gran % Nucleated RBC % Immature Gran # Nucleated RBCs # Sodium Potassium Chloride Carbon Dioxide Anion Gap BUN Creatinine GFR Calculation BUN/Creatinine Ratio Glucose POC Glucose 146 H 175 H 230 H Calculated Osmolality Calcium Magnesium Total Creatine Kinase CK-MB (CK-2) Troponin I 02/07/17 02/07/17 02/07/17 04:36 04:37 04:37 WBC 7.3 RBC 4.56 Hgb 10.7 L Hct 34.4 L MCV 75.4 L MCH 24 L MCHC 31.1 L RDW 18.0 H Plt Count 198 D MPV 10.7 Neut % (Auto) 67.7 Lymph % (Auto) 22.1 [place] % (Auto) 6.3 Eos % (Auto) 3.3 Baso % (Auto) 0.3 Neut # (Auto) 4.9 Lymph # (Auto) 1.6 [place] # (Auto) 0.5 Eos # (Auto) 0.2 Baso # (Auto) 0.0 Immature Gran % 0.3 Nucleated RBC % 0.0 Immature Gran # 0.02 Nucleated RBCs # 0.00 Sodium 141 Potassium 4.3 Chloride 104 Carbon Dioxide 29 Anion Gap 12.3 BUN 13 Creatinine 0.80 GFR Calculation 78 BUN/Creatinine Ratio 16.00 Glucose 124 H POC Glucose Calculated Osmolality 281.3 Calcium 8.4 L Magnesium 1.8 Total Creatine Kinase 356 H CK-MB (CK-2) < 1.0 Troponin I 0.206 H D 02/07/17 07:42 WBC RBC Hgb Hct MCV MCH MCHC RDW Plt Count MPV Neut % (Auto) Lymph % (Auto) [place] % (Auto) Eos % (Auto) Baso % (Auto) Neut # (Auto) Lymph # (Auto) [place] # (Auto) Eos # (Auto) Baso # (Auto) Immature Gran % Nucleated RBC % Immature Gran # Nucleated RBCs # Sodium Potassium Chloride Carbon Dioxide Anion Gap BUN Creatinine GFR Calculation BUN/Creatinine Ratio Glucose POC Glucose 192 H Calculated Osmolality Calcium Magnesium Total Creatine Kinase CK-MB (CK-2) Troponin I
[2017-02-07] MEDS: CLOPIDOGREL 75 MG TABLET PO SCH (08:51)
[2017-02-07] MEDS: ASPIRIN EC 325 MG TABLET PO SCH (08:52)
[2017-02-07] MEDS: PANTOPRAZOLE 40 MG TABLET PO SCH (08:52)
[2017-02-07] MEDS: ISOSORBIDE MONONITRATE 30 MG TABLET PO SCH (08:52)
[2017-02-07] MEDS: POTASSIUM CHLORIDE 8 MEQ CAPSULE PO SCH (08:52)
[2017-02-07] MEDS: PREGABALIN 50 MG CAPSULE PO SCH (08:52)
[2017-02-07] MEDS: LOSARTAN 50 MG TABLET PO SCH (08:52)
[2017-02-07] MEDS: METOPROLOL TARTRATE 100 MG TABLET PO SCH (08:52)
--- NOTE | 2017-02-07 10:33 | Discharge Summary ---
Hospital Course - Hospital Course Hospital Course: 76-year-old female with a history of insulin-dependent diabetes and hypertension presents to the emergency room with complaints of shortness of breath. Patient has a history of coronary disease. Serial troponins were positive. Patient had a cardiac cath and received 3 stents. One stent to the obtuse marginal branch and another stent to the proximal mid circumflex. She also received a stent to the left mid LAD. Patient feels great today and wants to go home. I am concerned that she has not been on any of her diabetes medicines and her blood sugars been running high normal. Patient says she never gets low on her medicines at home. I do not want to put her back on a diuretic. I have stopped her potassium. Patient will be discharged home today to follow-up with cardiology Dr. Hess in two weeks and PMD in one week - Time spent with patient Time with patient DS: Less than 30 minutes (25 min) Diagnosis - Discharge Diagnosis (1) Chest pain Status: Acute (2) Diabetes Status: Acute (3) Hypertension Status: Chronic Discharge Plan - Discharge Data Disposition: Disch To Home/Self Care Condition at Discharge: Stable Discharge Diet: diabetic diet Activity: resume usual activities as tolerated Hygiene: no restrictions Weight Bearing at Discharge: full weight bearing Driving: no restrictions - Discharge Medications New Aspirin EC Tab 325 mg PO DAILY tablet Atorvastatin [Lipitor] 80 mg PO DAILY #30 tablet Losartan [Cozaar] 100 mg PO DAILY #60 tablet Continue Metoprolol Tartrate 100 mg PO BID Clopidogrel [Plavix] 75 mg PO DAILY Linagliptin [Tradjenta] 5 mg PO DAILY Isosorbide Mononitrate [Isosorbide Mononitrate ER] 30 mg PO QAM Pregabalin [Lyrica] 50 mg PO DAILY Insulin Glargine,Hum.rec.anlog [Toujeo SoloStar] 30 unit SUBCUT DAILY #0 metFORMIN [Glucophage] 1,000 mg PO BID #0 glipiZIDE XL [Glucotrol Xl] 10 mg PO BID Discontinued Losartan/Hydrochlorothiazide [Losartan-Hctz 100-12.5 mg Tab] 100 mg PO DAILY Potassium Chloride 8 meq PO DAILY Nitroglycerin Sl Tab [Nitrostat] 0.4 mg SL Q5M PRN PRN Reason: Chest Pain - Follow Up or Referral Follow Up: Lizzette Hess MD [Physician] - 2 Weeks pmd, [Other] - 1 Week - Forms/Instructions Exam - Constitutional Vitals: Period Temp Pulse Resp BP Sys/Morrow Pulse Ox Last 24 Hr 97.2 F-98.9 F 60-97 16-20 111-150/51-75 92-96 General appearance: normal weight, no acute distress - Respiratory Respiratory exam: Present: clear to auscultation bilaterally. Absent: rhonchi, wheezes - Cardiovascular Cardiovascular exam: Present: regular rate and rhythm. Absent: systolic murmur - GI/Abdominal GI/Abdominal exam: Present: normal bowel sounds, soft - Extremities Exam Extremities exam: Present: normal inspection, normal capillary refill - Psychiatric Psychiatric exam: Present: normal affect, normal mood Discharge Results Labs on day of discharge: Labs from last 24 hours 02/07/17 02/07/17 02/07/17 07:42 04:37 04:37 WBC RBC Hgb Hct MCV MCH MCHC RDW Plt Count MPV Neut % (Auto) Lymph % (Auto) [place] % (Auto) Eos % (Auto) Baso % (Auto) Neut # (Auto) Lymph # (Auto) [place] # (Auto) Eos # (Auto) Baso # (Auto) Immature Gran % Nucleated RBC % Immature Gran # Nucleated RBCs # Sodium 141 Potassium 4.3 Chloride 104 Carbon Dioxide 29 Anion Gap 12.3 BUN 13 Creatinine 0.80 GFR Calculation 78 BUN/Creatinine Ratio 16.00 Glucose 124 H POC Glucose 192 H Calculated Osmolality 281.3 Calcium 8.4 L Magnesium 1.8 Total Creatine Kinase 356 H CK-MB (CK-2) < 1.0 Troponin I 0.206 H D 02/07/17 02/06/17 02/06/17 04:36 19:18 15:44 WBC 7.3 RBC 4.56 Hgb 10.7 L Hct 34.4 L MCV 75.4 L MCH 24 L MCHC 31.1 L RDW 18.0 H Plt Count 198 D MPV 10.7 Neut % (Auto) 67.7 Lymph % (Auto) 22.1 [place] % (Auto) 6.3 Eos % (Auto) 3.3 Baso % (Auto) 0.3 Neut # (Auto) 4.9 Lymph # (Auto) 1.6 [place] # (Auto) 0.5 Eos # (Auto) 0.2 Baso # (Auto) 0.0 Immature Gran % 0.3 Nucleated RBC % 0.0 Immature Gran # 0.02 Nucleated RBCs # 0.00 Sodium Potassium Chloride Carbon Dioxide Anion Gap BUN Creatinine GFR Calculation BUN/Creatinine Ratio Glucose POC Glucose 230 H 175 H Calculated Osmolality Calcium Magnesium Total Creatine Kinase CK-MB (CK-2) Troponin I DS: Provider Date of admission: 02/05/17 20:20 Primary care physician: . No PCP Attending physician on admission: Mason Hitchcock MD Consults: 02/05/17 20:23 Consult to Physician [CONS] Routine Comment: Consulting Provider: Cardiology - [facility] Consult to Specialist Group: Cardiology When should Consulting Provider be notified: In am Person Notified: ANTHONY Date Notified: 02/06/17 Time Notified: 07:55 Discharging clinician: Eveline Doe MD
[2017-02-07] MEDS ORDERED: ATORVASTATIN 40 MG TABLET PO SCH (21:00)
== END 2017-02-07 12:10 | disposition home or self-care (01) ==
LOC: N.ED 14:16 → N.EDINP 14:16 → SUATTDRO 20:20 → N.TELEN 21:29
PROVIDERS: ADMIT Internal Medicine; ATTEND Internal Medicine
PROC: CLCCHCL (ICD-10-PCS; 2017-02-06 13:45)

== ENCOUNTER 2017-07-16 18:54 | Inpatient (IN) ==
[2017-07-16] MEDS ORDERED: SODIUM CHLORIDE 0.9% 500 ML IV STA (21:49)
[2017-07-16 22:05] LABS: Basophils % 0.5 % (0.0-0.8); Eosinophils # 0.2 10*3/uL (0.0-0.87); Eosinophils % 3.5 % (0.00-10.9); Hematocrit 37.3 VOL% (35.7-47.0); Hemoglobin 11.2 GM/DL (12.0-16.0); Immature Granulocytes % 0.3 %; Immature Granulocytes Absolute 0.02 #; Lymphocytes # 2.5 10*3/uL (1.4-4.0); Lymphocytes % 43.9 % (21.3-54.2); Mean Corpuscular Hemoglobin 23 PG (27-34); Mean Corpuscular Volume 75.7 FL (87-102); Mean Platelet Volume 10.1 FL (9.6-12.0); Monocytes # 0.4 10*3/uL (0.11-0.8); Monocytes % 6.8 % (1.7-12.7); Neutrophils # 2.6 10*3/uL (1.4-7.4); Platelet Count 243 T/CUMM (130-400); Red Blood Count 4.93 MC/CUMM (3.8-5.5); White Blood Count 5.7 T/CUMM (4-12)
[2017-07-16 22:40] LABS: Alanine Aminotransferase 17 U/L (13-56); Albumin 3.6 G/DL (3.4-5.0); Alkaline Phosphatase 88 U/L (45-117); Aspartate Amino Transferase 39 U/L (0-37); Blood Urea Nitrogen 12 MG/DL (7-18); Glucose 209 MG/DL (74-106); Magnesium 1.9 MG/DL (1.8-2.4); Osmolality,Calculated 284.4 MOS/KG (273-304); Sodium 140 MMOL/L (136-145); Total Protein 6.4 G/DL (6.4-8.3); Troponin I Only < 0.015 NG/ML (0.00-0.045)
[2017-07-16 23:20] LABS: Apearance,Urine CLOUDY (Clear); Bacteria,Urine Few /HPF (Few); Bilirubin,Urine Negative (Negative); Blood, Urine Negative (Negative); Glucose,Urine (UA) 50 mg/dL (Negative); Ketones,Urine Negative (Negative); Mucus,Urine Occasional /LPF (Occasional); Nitrite,Urine Negative (Negative); Protein,Urine Negative; Squamous Epithelial Cell,Urine Occasional /HPF (0-10); Urine Color Yellow (Yellow); Urine Specific Gravity 1.021 (1.001-1.035); WBC,Urine 44 /HPF (0-6)
[2017-07-16] MEDS ORDERED: cefTRIAXone 1,000 MG in SODIUM CHLORIDE 0.9% 100 ML IV STA (23:35)
[2017-07-16 23:37] LABS: PT Patient Result 10.2 SECS
[2017-07-16 23:44] LABS: Lactic Acid 1.8 MMOL/L (0.4-2.0)
[2017-07-16] MEDS ORDERED: SODIUM CHLORIDE 0.9% 100 ML IV ONE (23:44)
[2017-07-16] MEDS ORDERED: cefTRIAXone 1,000 MG VIAL ONE (23:44)
[2017-07-16] MEDS ORDERED: KETOROLAC 30 MG/1 ML VIAL IV STA (23:48)
[2017-07-16] MEDS ORDERED: KETOROLAC 30 MG/1 ML VIAL ONE (23:51)
[2017-07-17] MEDS ORDERED: GLUCAGON 1 MG VIAL IM PRN (01:42)
[2017-07-17] MEDS ORDERED: DEXTROSE 50% 25 GM/50 ML VIAL IV PRN (01:42)
[2017-07-17] MEDS: SODIUM CHLORIDE 0.9% 1,000 ML IV SCH ×3 (02:53→22:06)
[2017-07-17 04:29] LABS: Calcium 8.6 MG/DL (8.5-10.1); Magnesium 1.9 MG/DL (1.8-2.4); Osmolality,Calculated 281.5 MOS/KG (273-304); Potassium 3.7 MMOL/L (3.5-5.1); Risk Ratio 5.32; VLDL CHOLESTEROL 36.6 MG/DL
[2017-07-17] MEDS ORDERED: ENOXAPARIN 40 MG/0.4 ML SYRINGE ONE (08:43)
[2017-07-17] MEDS: ENOXAPARIN 40 MG/0.4 ML SYRINGE SUBCUT SCH (08:45)
[2017-07-17] MEDS ORDERED: ONDANSETRON 4 MG/2 ML VIAL ONE (11:00)
[2017-07-17] MEDS: ONDANSETRON 4 MG/2 ML VIAL IV PRN ×2 (11:00→16:27)
[2017-07-17] MEDS ORDERED: INSULIN LISPRO 100 UNIT/ML SUBCUT ONE (11:41)
[2017-07-17] MEDS: INSULIN LISPRO 100 UNIT/ML SUBCUT SCH ×3 (11:42→20:47)
[2017-07-17] MEDS ORDERED: METOCLOPRAMIDE 10 MG/2 ML VIAL IV PRN (18:12)
[2017-07-17] MEDS ORDERED: METOCLOPRAMIDE 10 MG/2 ML VIAL ONE (18:14)
[2017-07-17] MEDS: METOPROLOL SUCCINATE XL 100 MG TABLET PO SCH (20:48)
[2017-07-17] MEDS ORDERED: METOPROLOL SUCCINATE XL 100 MG TABLET PO SCH (21:00)
[2017-07-18 04:22] LABS: Basophils % 0.2 % (0.0-0.8); Eosinophils # 0.1 10*3/uL (0.0-0.87); Eosinophils % 1.5 % (0.00-10.9); Hemoglobin 10.1 GM/DL (12.0-16.0); Immature Granulocytes % 0.6 %; Immature Granulocytes Absolute 0.03 #; Lymphocytes # 0.5 10*3/uL (1.4-4.0); Lymphocytes % 10.1 % (21.3-54.2); Mean Corpuscular HGB Conc 29.7 GM/DL (32-36); Mean Corpuscular Hemoglobin 23 PG (27-34); Mean Corpuscular Volume 75.7 FL (87-102); Mean Platelet Volume 10.1 FL (9.6-12.0); Monocytes # 0.2 10*3/uL (0.11-0.8); Monocytes % 4.4 % (1.7-12.7); Neutrophils # 3.9 10*3/uL (1.4-7.4); Neutrophils % 83.2 % (38.7-73.9); Platelet Count 189 T/CUMM (130-400); Red Blood Count 4.49 MC/CUMM (3.8-5.5); Red Cell Distribution Width 15.8 % (9.3-17.3); White Blood Count 4.7 T/CUMM (4-12)
[2017-07-18 04:44] LABS: Calcium 8.4 MG/DL (8.5-10.1); Osmolality,Calculated 282.4 MOS/KG (273-304); Potassium 3.8 MMOL/L (3.5-5.1)
[2017-07-18] MEDS: SODIUM CHLORIDE 0.9% 1,000 ML IV SCH ×2 (06:40→17:18)
[2017-07-18] MEDS ORDERED: MAGNESIUM OXIDE 400 MG TABLET PO SCH (09:00)
[2017-07-18] MEDS ORDERED: NON-FORMULARY MEDICATION (Potassium Chloride [Potassium Chloride] 10 MEQ) PO SCH (09:00)
[2017-07-18] MEDS ORDERED: amLODIPine 2.5 MG TABLET PO SCH ×3 (09:00→21:00)
[2017-07-18] MEDS ORDERED: NON-FORMULARY MEDICATION (Linagliptin [Tradjenta] 5 MG) PO SCH (09:00)
[2017-07-18] MEDS ORDERED: INSULIN GLARGINE HUM REC ANLOG 60 UNIT SUBCUT SCH (09:00)
[2017-07-18] MEDS ORDERED: NON-FORMULARY MEDICATION (Losartan/Hydrochlorothiazide [Losartan-Hctz 100-12.5 Mg Tab] 1 E PO SCH (09:00)
[2017-07-18] MEDS ORDERED: INSULIN GLARGINE HUM REC ANLOG 40 UNIT SUBCUT SCH (09:00)
[2017-07-18] MEDS: INSULIN GLARGINE 100 UNIT/ML SUBCUT SCH (09:15)
[2017-07-18] MEDS: ENOXAPARIN 40 MG/0.4 ML SYRINGE SUBCUT SCH (09:16)
[2017-07-18] MEDS: LOSARTAN 50 MG TABLET PO SCH (09:17)
[2017-07-18] MEDS: hydroCHLOROthiazide 12.5 MG CAPSULE PO SCH (09:17)
[2017-07-18] MEDS: ASPIRIN EC 325 MG TABLET PO SCH (09:19)
[2017-07-18] MEDS: CLOPIDOGREL 75 MG TABLET PO SCH (09:25)
[2017-07-18] MEDS: METOPROLOL SUCCINATE XL 100 MG TABLET PO SCH ×2 (09:26→20:58)
[2017-07-18] MEDS: sitaGLIPtin 100 MG TABLET PO SCH (09:26)
[2017-07-18] MEDS: POTASSIUM CHLORIDE 10 MEQ TABLET PO SCH (09:26)
[2017-07-18] MEDS: MAGNESIUM OXIDE 400 MG TABLET PO SCH (09:26)
[2017-07-18 13:51] LABS: Basophils % 0.2 % (0.0-0.8); Eosinophils # 0.1 10*3/uL (0.0-0.87); Eosinophils % 1.6 % (0.00-10.9); Hematocrit 34.1 VOL% (35.7-47.0); Hemoglobin 10.2 GM/DL (12.0-16.0); Immature Granulocytes % 0.7 %; Immature Granulocytes Absolute 0.03 #; Lymphocytes % 22.5 % (21.3-54.2); Mean Corpuscular HGB Conc 29.9 GM/DL (32-36); Mean Corpuscular Hemoglobin 23 PG (27-34); Mean Corpuscular Volume 77.1 FL (87-102); Mean Platelet Volume 9.6 FL (9.6-12.0); Monocytes # 0.3 10*3/uL (0.11-0.8); Monocytes % 6.8 % (1.7-12.7); Neutrophils # 2.9 10*3/uL (1.4-7.4); Neutrophils % 68.2 % (38.7-73.9); Platelet Count 183 T/CUMM (130-400); Red Blood Count 4.42 MC/CUMM (3.8-5.5); Red Cell Distribution Width 15.9 % (9.3-17.3); White Blood Count 4.3 T/CUMM (4-12)
[2017-07-18] MEDS ORDERED: cefTRIAXone 1,000 MG in SYRINGE 1 EACH IV SCH (14:00)
[2017-07-18] MEDS: INSULIN LISPRO 100 UNIT/ML SUBCUT SCH ×4 (14:17→20:58)
[2017-07-18 14:57] LABS: Folate 15.3 NG/ML (5.4-24.0); Vitamin B12 173 PG/ML (211-911)
[2017-07-18] MEDS ORDERED: hydrALAZINE 25 MG TABLET PO PRN (15:48)
[2017-07-18 16:08] LABS: Sedimentation Rate-Westergren 19 MM/HR (0-30)
[2017-07-18] MEDS: amLODIPine 5 MG TABLET PO SCH (20:58)
[2017-07-19 05:45] LABS: Basophils % 0.5 % (0.0-0.8); Eosinophils # 0.3 10*3/uL (0.0-0.87); Eosinophils % 6.5 % (0.00-10.9); Hematocrit 32.4 VOL% (35.7-47.0); Hemoglobin 9.8 GM/DL (12.0-16.0); Immature Granulocytes Absolute 0.04 #; Lymphocytes # 1.4 10*3/uL (1.4-4.0); Lymphocytes % 34.1 % (21.3-54.2); Mean Corpuscular HGB Conc 30.2 GM/DL (32-36); Mean Corpuscular Hemoglobin 23 PG (27-34); Mean Corpuscular Volume 74.7 FL (87-102); Mean Platelet Volume 10.6 FL (9.6-12.0); Monocytes # 0.4 10*3/uL (0.11-0.8); Monocytes % 9.8 % (1.7-12.7); Neutrophils # 1.9 10*3/uL (1.4-7.4); Neutrophils % 48.1 % (38.7-73.9); Platelet Count 187 T/CUMM (130-400); Red Blood Count 4.34 MC/CUMM (3.8-5.5); Red Cell Distribution Width 15.8 % (9.3-17.3)
[2017-07-19 06:23] LABS: Calcium 8.3 MG/DL (8.5-10.1); Osmolality,Calculated 277.5 MOS/KG (273-304); Potassium 3.9 MMOL/L (3.5-5.1)
[2017-07-19 07:31] LABS: Hemoglobin A1 (Alkaline) 97.7 % (96.5-98.5); Hemoglobin A2 (Alkaline) 2.3 % (1.5-3.5)
[2017-07-19] MEDS: INSULIN GLARGINE 100 UNIT/ML SUBCUT SCH (08:45)
[2017-07-19] MEDS: INSULIN LISPRO 100 UNIT/ML SUBCUT SCH ×2 (08:45→13:10)
[2017-07-19] MEDS: LOSARTAN 50 MG TABLET PO SCH (08:46)
[2017-07-19] MEDS: hydroCHLOROthiazide 12.5 MG CAPSULE PO SCH (08:47)
[2017-07-19] MEDS: sitaGLIPtin 100 MG TABLET PO SCH (08:47)
[2017-07-19] MEDS: amLODIPine 5 MG TABLET PO SCH (08:47)
[2017-07-19] MEDS: ASPIRIN EC 325 MG TABLET PO SCH (08:47)
[2017-07-19] MEDS: CLOPIDOGREL 75 MG TABLET PO SCH (08:48)
[2017-07-19] MEDS: MAGNESIUM OXIDE 400 MG TABLET PO SCH (08:48)
[2017-07-19] MEDS: POTASSIUM CHLORIDE 10 MEQ TABLET PO SCH (08:48)
[2017-07-19] MEDS: METOPROLOL SUCCINATE XL 100 MG TABLET PO SCH (08:48)
[2017-07-19] MEDS: ENOXAPARIN 40 MG/0.4 ML SYRINGE SUBCUT SCH (08:51)
[2017-07-19] MEDS ORDERED: DIAZEPAM 5 MG TABLET PO ONE (11:29)
[2017-07-19] MEDS ORDERED: diphenhydrAMINE CAP 50 MG CAPSULE PO ONE (11:29)
[2017-07-19 12:51] VITALS: BP 172/74
[2017-07-19] MEDS ORDERED: LIDOCAINE 1%/EPI INJ 20 ML VIAL ONE (12:57)
[2017-07-19] MEDS ORDERED: TISSUE ADHESIVE 1 EACH APPLICATOR TOP ONE (12:57)
[2017-07-19] MEDS: SODIUM CHLORIDE 0.9% 1,000 ML IV SCH (13:10)
== END 2017-07-19 15:24 | disposition home or self-care (01) | DRG 260 ==
LOC: N.ED 18:54 → SUATTDRO 07-17 00:56 → N.TELEN 07-17 00:56 → N.ED 07-17 13:25
PROVIDERS: ADMIT Internal Medicine Infectious Disease; ATTEND Hospitalist

== ENCOUNTER 2018-10-09 11:31 | Observation (INO) ==
[2018-10-09] MEDS ORDERED: NITROGLYCERIN 2% OINT 1 INCH/GM PACK TOP STA (11:51)
[2018-10-09] MEDS ORDERED: PANTOPRAZOLE 40 MG VIAL IV STA (11:51)
[2018-10-09 12:19] LABS: Basophils % 0.6 % (0.0-0.8); Eosinophils # 0.1 10*3/uL (0.0-0.87); Eosinophils % 1.7 % (0.00-10.9); Hematocrit 38.4 VOL% (35.7-47.0); Hemoglobin 12.3 GM/DL (12.0-16.0); Immature Granulocytes % 0.4 %; Immature Granulocytes Absolute 0.02 #; Lymphocytes # 1.6 10*3/uL (1.4-4.0); Lymphocytes % 30.1 % (21.3-54.2); Mean Corpuscular Hemoglobin 27 PG (27-34); Mean Corpuscular Volume 84.2 FL (87-102); Mean Platelet Volume 10.1 FL (9.6-12.0); Monocytes # 0.4 10*3/uL (0.11-0.8); Monocytes % 7.4 % (1.7-12.7); Neutrophils # 3.2 10*3/uL (1.4-7.4); Neutrophils % 59.8 % (38.7-73.9); Platelet Count 250 T/CUMM (130-400); Red Blood Count 4.56 MC/CUMM (3.8-5.5); White Blood Count 5.4 T/CUMM (4-12)
[2018-10-09 12:32] LABS: INR 0.9; PT Patient Result 9.9 SECS; Partial Thromboplastin Time 23.6 SECS (0-40)
[2018-10-09 12:44] LABS: Albumin 3.4 G/DL (3.4-5.0); Bilirubin,Total 0.9 MG/DL (0.2-1.0); Osmolality,Calculated 280.4 MOS/KG (273-304); Potassium 3.4 MMOL/L (3.5-5.1); Total Protein 6.8 G/DL (6.4-8.3)
[2018-10-09] MEDS ORDERED: POTASSIUM CHLORIDE 20 MEQ TABLET PO STA (13:19)
[2018-10-09] MEDS ORDERED: MAGNESIUM SULF RIDER 2 GM in PREMIX 1 EACH IV PRN (14:22)
[2018-10-09] MEDS ORDERED: MAGNESIUM SULF RIDER 4 GM in PREMIX 1 EACH IV PRN (14:22)
[2018-10-09] MEDS ORDERED: DOCUSATE SODIUM 100 MG CAPSULE PO PRN (14:22)
[2018-10-09] MEDS ORDERED: BISACODYL 5 MG TABLET PO PRN (14:22)
[2018-10-09] MEDS ORDERED: ZALEPLON 5 MG CAPSULE PO PRN (14:22)
[2018-10-09] MEDS ORDERED: PANTOPRAZOLE 40 MG TABLET PO SCH (14:30)
[2018-10-09] MEDS ORDERED: RANOLAZINE 500 MG TABLET PO PRN (14:31)
[2018-10-09] MEDS ORDERED: DEXTROSE 50% 25 GM/50 ML VIAL IV PRN (14:37)
[2018-10-09] MEDS ORDERED: GLUCAGON 1 MG VIAL IM PRN (14:37)
[2018-10-09 15:00] LABS: Apearance,Urine CLEAR (Clear); Bilirubin,Urine Negative (Negative); Blood, Urine Negative (Negative); Glucose,Urine (UA) Negative (Negative); Ketones,Urine Negative (Negative); Mucus,Urine Occasional /LPF (Occasional); Nitrite,Urine Negative (Negative); Protein,Urine 30 MG/DL; Squamous Epithelial Cell,Urine Occasional /HPF (0-10); Urine Color Amber (Yellow); Urine Specific Gravity 1.023 (1.001-1.035); Urine Urobilinogen < 2.0 EU/DL (0.2-1.0)
[2018-10-09] MEDS ORDERED: ASPIRIN CHEW 81 MG TABLET PO ONE (16:09)
[2018-10-09] MEDS: ENOXAPARIN 40 MG/0.4 ML SYRINGE SUBCUT SCH (16:11)
[2018-10-09] MEDS: CLOPIDOGREL 75 MG TABLET PO SCH (16:11)
[2018-10-09] MEDS: ASPIRIN EC 81 MG TABLET PO SCH (17:04)
[2018-10-09] MEDS: LOSARTAN 25 MG TABLET PO SCH ×2 (17:04→20:29)
[2018-10-09] MEDS: INSULIN REGULAR 100 UNIT/ML SUBCUT SCH ×2 (17:04→21:53)
[2018-10-09] MEDS ORDERED: ALUM/MAG/SIMETH/LIDO VISC 1:1 30 ML BOTTLE PO ONE (20:19)
[2018-10-09] MEDS: METOPROLOL SUCCINATE XL 100 MG TABLET PO SCH (20:29)
[2018-10-10 04:45] LABS: Basophils % 0.5 % (0.0-0.8); Eosinophils # 0.1 10*3/uL (0.0-0.87); Eosinophils % 1.8 % (0.00-10.9); Hematocrit 37.3 VOL% (35.7-47.0); Hemoglobin 11.6 GM/DL (12.0-16.0); Immature Granulocytes % 0.5 %; Immature Granulocytes Absolute 0.03 #; Lymphocytes % 29.8 % (21.3-54.2); Mean Corpuscular HGB Conc 31.1 GM/DL (32-36); Mean Corpuscular Hemoglobin 26 PG (27-34); Mean Corpuscular Volume 84.6 FL (87-102); Mean Platelet Volume 10.2 FL (9.6-12.0); Monocytes # 0.4 10*3/uL (0.11-0.8); Monocytes % 6.2 % (1.7-12.7); Neutrophils % 61.2 % (38.7-73.9); Platelet Count 272 T/CUMM (130-400); Red Blood Count 4.41 MC/CUMM (3.8-5.5); Red Cell Distribution Width 14.2 % (9.3-17.3); White Blood Count 6.6 T/CUMM (4-12)
[2018-10-10 04:59] LABS: Calcium 8.5 MG/DL (8.5-10.1); Osmolality,Calculated 282.3 MOS/KG (273-304); Potassium 3.8 MMOL/L (3.5-5.1); Risk Ratio 5.88
[2018-10-10] MEDS: INSULIN REGULAR 100 UNIT/ML SUBCUT SCH ×4 (08:33→21:40)
[2018-10-10] MEDS: CLOPIDOGREL 75 MG TABLET PO SCH (08:58)
[2018-10-10] MEDS: ASPIRIN EC 81 MG TABLET PO SCH (08:59)
[2018-10-10] MEDS: METOPROLOL SUCCINATE XL 100 MG TABLET PO SCH ×2 (08:59→21:16)
[2018-10-10] MEDS: PANTOPRAZOLE 40 MG TABLET PO SCH ×2 (09:00→21:17)
[2018-10-10] MEDS: LOSARTAN 50 MG TABLET PO SCH ×2 (09:01→21:17)
[2018-10-10] MEDS ORDERED: POTASSIUM CHLORIDE RIDER 10 MEQ in PREMIX 1 EACH IV PRN (09:15)
[2018-10-10] MEDS: SODIUM CHLORIDE 0.9% 1,000 ML IV SCH ×2 (11:15→19:00)
[2018-10-10] MEDS: POTASSIUM CHLORIDE RIDER 10 MEQ in PREMIX 1 EACH IV PRN ×2 (11:15→13:30)
[2018-10-10] MEDS ORDERED: NITROGLYCERIN SL 0.4 MG TABLET SL ONE ×2 (11:20→11:31)
[2018-10-10] MEDS: NITROGLYCERIN 2% OINT 1 INCH/GM PACK TOP SCH ×2 (11:35→18:05)
[2018-10-10] MEDS ORDERED: ALUM/MAG/SIMETH/LIDO VISC 1:1 30 ML BOTTLE PO ONE (13:19)
[2018-10-10] MEDS: hydrALAZINE 20 MG/1 ML VIAL IV PRN (13:26)
[2018-10-10] MEDS ORDERED: DIAZEPAM 5 MG TABLET PO ONE (15:00)
[2018-10-10] MEDS ORDERED: diphenhydrAMINE CAP 25 MG CAPSULE PO ONE (15:00)
[2018-10-10] MEDS: ENOXAPARIN 40 MG/0.4 ML SYRINGE SUBCUT SCH (15:57)
[2018-10-10] MEDS: EZETIMIBE 10 MG TABLET PO SCH (21:16)
[2018-10-10] MEDS: ALUMINUM/MAGNES/SIMETH MAX STR 30 ML UDCUP PO PRN (21:41)
[2018-10-11] MEDS: NITROGLYCERIN 2% OINT 1 INCH/GM PACK TOP SCH ×3 (00:19→12:12)
[2018-10-11 04:34] LABS: Basophils % 0.5 % (0.0-0.8); Eosinophils # 0.1 10*3/uL (0.0-0.87); Eosinophils % 2.2 % (0.00-10.9); Hematocrit 37.7 VOL% (35.7-47.0); Hemoglobin 11.6 GM/DL (12.0-16.0); Immature Granulocytes % 0.5 %; Immature Granulocytes Absolute 0.03 #; Lymphocytes % 31.6 % (21.3-54.2); Mean Corpuscular HGB Conc 30.8 GM/DL (32-36); Mean Corpuscular Hemoglobin 26 PG (27-34); Mean Corpuscular Volume 85.1 FL (87-102); Mean Platelet Volume 10.4 FL (9.6-12.0); Monocytes # 0.5 10*3/uL (0.11-0.8); Monocytes % 7.1 % (1.7-12.7); Neutrophils # 3.7 10*3/uL (1.4-7.4); Neutrophils % 58.1 % (38.7-73.9); Platelet Count 262 T/CUMM (130-400); Red Blood Count 4.43 MC/CUMM (3.8-5.5); Red Cell Distribution Width 14.5 % (9.3-17.3); White Blood Count 6.3 T/CUMM (4-12)
[2018-10-11 04:58] LABS: Calcium 8.7 MG/DL (8.5-10.1); Osmolality,Calculated 278.7 MOS/KG (273-304); Potassium 4.1 MMOL/L (3.5-5.1)
[2018-10-11] MEDS: SODIUM CHLORIDE 0.9% 1,000 ML IV SCH ×2 (05:50→12:12)
[2018-10-11] MEDS: INSULIN REGULAR 100 UNIT/ML SUBCUT SCH ×4 (08:44→20:41)
[2018-10-11] MEDS ORDERED: PROPOFOL 200 MG/20 ML VIAL IV ONE (10:00)
[2018-10-11] MEDS ORDERED: LIDOCAINE 2% 5 ML VIAL ONE (10:00)
[2018-10-11] MEDS ORDERED: MORPHINE 4 MG/1 ML VIAL IV PRN (11:25)
[2018-10-11] MEDS: PANTOPRAZOLE 40 MG TABLET PO SCH ×2 (12:11→20:40)
[2018-10-11] MEDS: LOSARTAN 50 MG TABLET PO SCH ×2 (12:11→20:46)
[2018-10-11] MEDS: CLOPIDOGREL 75 MG TABLET PO SCH (12:11)
[2018-10-11] MEDS: METOPROLOL SUCCINATE XL 100 MG TABLET PO SCH ×2 (12:11→20:40)
[2018-10-11] MEDS: ASPIRIN EC 81 MG TABLET PO SCH (12:11)
[2018-10-11] MEDS: ONDANSETRON 4 MG/2 ML VIAL IV PRN (12:37)
[2018-10-11] MEDS: EZETIMIBE 10 MG TABLET PO SCH (20:40)
[2018-10-12] MEDS: INSULIN REGULAR 100 UNIT/ML SUBCUT SCH ×4 (09:15→22:39)
[2018-10-12] MEDS: PANTOPRAZOLE 40 MG TABLET PO SCH ×2 (09:15→22:02)
[2018-10-12] MEDS: METOPROLOL SUCCINATE XL 100 MG TABLET PO SCH ×2 (09:15→22:02)
[2018-10-12] MEDS: LOSARTAN 50 MG TABLET PO SCH ×2 (09:15→22:02)
[2018-10-12] MEDS: ASPIRIN EC 81 MG TABLET PO SCH (09:15)
[2018-10-12] MEDS: SODIUM CHLORIDE 0.9% 1,000 ML IV SCH ×3 (09:16→19:21)
[2018-10-12] MEDS: CLOPIDOGREL 75 MG TABLET PO SCH (09:17)
[2018-10-12] MEDS ORDERED: DEXTROSE 50% 25 GM/50 ML SYRINGE IV PRN (13:51)
[2018-10-12] MEDS ORDERED: GLUCAGON 1 MG VIAL IM PRN (13:51)
[2018-10-12] MEDS: hydrALAZINE 20 MG/1 ML VIAL IV PRN (16:29)
[2018-10-12] MEDS ORDERED: NITROGLYCERIN SL 0.4 MG TABLET SL ONE (17:09)
[2018-10-12] MEDS ORDERED: NITROGLYCERIN SL 0.4 MG TABLET SL PRN (17:11)
[2018-10-12] MEDS: ONDANSETRON 4 MG/2 ML VIAL IV PRN (17:14)
[2018-10-12] MEDS: ALUMINUM/MAGNES/SIMETH MAX STR 30 ML UDCUP PO PRN (19:27)
[2018-10-12] MEDS: EZETIMIBE 10 MG TABLET PO SCH (22:02)
[2018-10-13] MEDS: ALUMINUM/MAGNES/SIMETH MAX STR 30 ML UDCUP PO PRN (02:35)
[2018-10-13] MEDS: SODIUM CHLORIDE 0.9% 1,000 ML IV SCH (02:35)
[2018-10-13] MEDS: CLOPIDOGREL 75 MG TABLET PO SCH (09:01)
[2018-10-13] MEDS: PANTOPRAZOLE 40 MG TABLET PO SCH (09:01)
[2018-10-13] MEDS: LOSARTAN 50 MG TABLET PO SCH (09:01)
[2018-10-13] MEDS: ASPIRIN EC 81 MG TABLET PO SCH (09:01)
[2018-10-13] MEDS: INSULIN REGULAR 100 UNIT/ML SUBCUT SCH (09:01)
[2018-10-13] MEDS ORDERED: METOPROLOL SUCCINATE XL 100 MG TABLET PO SCH (09:30)
[2018-10-13] MEDS: METOPROLOL SUCCINATE XL 100 MG TABLET PO SCH (09:44)
[2018-10-13 12:54] VITALS: BP 144/64
== END 2018-10-13 13:05 | disposition home or self-care (01) ==
LOC: N.EDINP 11:31 → N.ED 11:31 → N.EDINP 16:23 → N.TELES 16:27
PROVIDERS: ADMIT Internal Medicine Cardiovascular Disease; ATTEND Internal Medicine Cardiovascular Disease

== ENCOUNTER 2019-09-04 19:55 | Inpatient (IN) ==
[2019-09-04] MEDS ORDERED: METOCLOPRAMIDE 10 MG/2 ML VIAL IV STA (20:33)
[2019-09-04] MEDS ORDERED: PANTOPRAZOLE 40 MG VIAL IV STA (20:33)
[2019-09-04] MEDS ORDERED: SODIUM CHLORIDE 0.9% 500 ML IV STA (20:33)
[2019-09-04] MEDS ORDERED: ONDANSETRON 4 MG/2 ML VIAL IV STA (20:33)
[2019-09-04] MEDS ORDERED: HYDROmorphone 2 MG/1 ML VIAL IV STA (20:33)
[2019-09-04 20:56] LABS: Basophils % 0.2 % (0.0-0.8); Eosinophils % 0.1 % (0.00-10.9); Hematocrit 38.8 VOL% (35.7-47.0); Immature Granulocytes % 0.6 %; Immature Granulocytes Absolute 0.06 #; Lymphocytes # 1.1 10*3/uL (1.4-4.0); Lymphocytes % 10.4 % (21.3-54.2); Mean Corpuscular HGB Conc 30.9 GM/DL (32-36); Mean Corpuscular Volume 78.5 FL (87-102); Mean Platelet Volume 9.9 FL (9.6-12.0); Neutrophils % 84.7 % (38.7-73.9); Platelet Count 280 T/CUMM (130-400); Red Blood Count 4.94 MC/CUMM (3.8-5.5); Red Cell Distribution Width 15.5 % (9.3-17.3); White Blood Count 10.8 T/CUMM (4-12)
[2019-09-04 21:07] LABS: Apearance,Urine CLEAR (Clear); Bilirubin,Urine Negative (Negative); Blood, Urine Negative (Negative); Glucose,Urine (UA) >=500 mg/dL (Negative); Ketones,Urine 5 mg/dL (Negative); Nitrite,Urine Negative (Negative); Protein,Urine 30 MG/DL; Squamous Epithelial Cell,Urine Occasional /HPF (0-10); Urine Color Straw (Yellow); Urine Specific Gravity 1.012 (1.001-1.035); Urine Urobilinogen < 2.0 EU/DL (0.2-1.0); WBC,Urine 4 /HPF (0-6)
[2019-09-04 21:28] LABS: Albumin 3.6 G/DL (3.4-5.0); Bilirubin,Total 0.7 MG/DL (0.2-1.0); Calcium 8.7 MG/DL (8.5-10.1); Osmolality,Calculated 282.8 MOS/KG (273-304); Total Protein 7.1 G/DL (6.4-8.3)
[2019-09-05] MEDS ORDERED: ENOXAPARIN 100 MG/ML SYRINGE SUBCUT STA ×2 (00:32→01:16)
[2019-09-05] MEDS ORDERED: GLUCAGON 1 MG VIAL IM PRN (03:05)
[2019-09-05] MEDS ORDERED: PROMETHAZINE 25 MG/1 ML VIAL IM PRN (03:05)
[2019-09-05] MEDS ORDERED: ONDANSETRON 4 MG/2 ML VIAL IV PRN (03:05)
[2019-09-05] MEDS ORDERED: DEXTROSE 50% 25 GM/50 ML SYRINGE IV PRN (03:05)
[2019-09-05] MEDS ORDERED: METOCLOPRAMIDE 10 MG/2 ML VIAL IV PRN (03:05)
[2019-09-05] MEDS ORDERED: MORPHINE 4 MG/1 ML VIAL IV PRN (03:05)
[2019-09-05] MEDS ORDERED: NITROGLYCERIN SL 0.4 MG TABLET SL PRN (03:05)
[2019-09-05] MEDS: SODIUM CHLORIDE 0.9% 1,000 ML IV SCH ×3 (03:43→15:38)
[2019-09-05] MEDS: LACTULOSE 20 GM/30 ML UDCUP PO SCH ×6 (03:44→22:04)
[2019-09-05] MEDS: ACETAMINOPHEN 325 MG TABLET PO PRN ×2 (05:05→06:20)
[2019-09-05 05:44] LABS: Basophils % 0.2 % (0.0-0.8); Eosinophils % 0.2 % (0.00-10.9); Hematocrit 35.3 VOL% (35.7-47.0); Immature Granulocytes % 0.4 %; Immature Granulocytes Absolute 0.04 #; Lymphocytes # 1.7 10*3/uL (1.4-4.0); Lymphocytes % 17.3 % (21.3-54.2); Mean Corpuscular HGB Conc 31.2 GM/DL (32-36); Mean Corpuscular Volume 78.6 FL (87-102); Mean Platelet Volume 10.6 FL (9.6-12.0); Monocytes % 5.1 % (1.7-12.7); Neutrophils % 76.8 % (38.7-73.9); Platelet Count 269 T/CUMM (130-400); Red Blood Count 4.49 MC/CUMM (3.8-5.5); Red Cell Distribution Width 15.3 % (9.3-17.3); White Blood Count 9.6 T/CUMM (4-12)
[2019-09-05 06:18] LABS: Calcium 8.7 MG/DL (8.5-10.1); Osmolality,Calculated 279.1 MOS/KG (273-304)
[2019-09-05] MEDS: POLYETHYLENE GLYCOL POWDER 17 GM PACK PO SCH (11:00)
[2019-09-05] MEDS: PANTOPRAZOLE 40 MG VIAL IV SCH ×2 (11:00→22:23)
[2019-09-05] MEDS: DOCUSATE SODIUM 100 MG CAPSULE PO SCH ×2 (11:00→22:03)
[2019-09-05] MEDS: INSULIN LISPRO 100 UNIT/ML SUBCUT SCH ×4 (11:01→22:28)
[2019-09-05 11:30] LABS: Troponin I 0.543 NG/ML (0.00-0.045)
[2019-09-05] MEDS ORDERED: SODIUM PHOSPHATE ENEMA 133 ML BOTTLE RECTAL ONE (11:30)
[2019-09-05] MEDS ORDERED: MECLIZINE 25 MG TABLET PO PRN (11:30)
[2019-09-05] MEDS ORDERED: ENOXAPARIN 80 MG/0.8 ML SYRINGE SUBCUT SCH (15:00)
[2019-09-05] MEDS: METOPROLOL TARTRATE 5 MG/5 ML VIAL IV SCH (18:00)
[2019-09-06] MEDS: METOPROLOL TARTRATE 5 MG/5 ML VIAL IV SCH ×2 (00:57→06:29)
[2019-09-06] MEDS: LACTULOSE 20 GM/30 ML UDCUP PO SCH ×6 (04:05→23:14)
[2019-09-06] MEDS: hydrALAZINE 20 MG/1 ML VIAL IV PRN (05:15)
[2019-09-06] MEDS: PANTOPRAZOLE 40 MG VIAL IV SCH ×2 (08:45→21:18)
[2019-09-06] MEDS ORDERED: METOPROLOL TARTRATE 50 MG TABLET PO SCH (09:00)
[2019-09-06] MEDS: INSULIN LISPRO 100 UNIT/ML SUBCUT SCH ×4 (09:44→21:23)
[2019-09-06] MEDS: ENOXAPARIN 40 MG/0.4 ML SYRINGE SUBCUT SCH (09:48)
[2019-09-06] MEDS: LOSARTAN 50 MG TABLET PO SCH (09:48)
[2019-09-06] MEDS: METOPROLOL SUCCINATE XL 100 MG TABLET PO SCH (09:48)
[2019-09-06] MEDS: POLYETHYLENE GLYCOL POWDER 17 GM PACK PO SCH (09:48)
[2019-09-06] MEDS: DOCUSATE SODIUM 100 MG CAPSULE PO SCH ×2 (09:49→21:16)
[2019-09-06] MEDS: SODIUM CHLORIDE 0.9% 1,000 ML IV SCH ×2 (09:49→15:33)
[2019-09-06] MEDS: DIAZEPAM 2 MG TABLET PO SCH ×2 (12:29→21:17)
[2019-09-06] MEDS: ONDANSETRON 4 MG/2 ML VIAL IV SCH ×2 (12:40→19:50)
[2019-09-06] MEDS: MECLIZINE 25 MG TABLET PO SCH ×3 (15:32→21:16)
[2019-09-07] MEDS: SODIUM CHLORIDE 0.9% 1,000 ML IV SCH ×2 (03:53→10:19)
[2019-09-07] MEDS: ONDANSETRON 4 MG/2 ML VIAL IV SCH ×3 (03:54→20:45)
[2019-09-07] MEDS: LACTULOSE 20 GM/30 ML UDCUP PO SCH ×6 (05:07→20:49)
[2019-09-07 07:09] LABS: Calcium 8.6 MG/DL (8.5-10.1); Osmolality,Calculated 275.1 MOS/KG (273-304)
[2019-09-07] MEDS: POLYETHYLENE GLYCOL POWDER 17 GM PACK PO SCH (09:15)
[2019-09-07] MEDS: INSULIN LISPRO 100 UNIT/ML SUBCUT SCH ×4 (09:15→20:44)
[2019-09-07] MEDS: DIAZEPAM 2 MG TABLET PO SCH ×2 (09:16→20:44)
[2019-09-07] MEDS: ENOXAPARIN 40 MG/0.4 ML SYRINGE SUBCUT SCH (09:16)
[2019-09-07] MEDS: DOCUSATE SODIUM 100 MG CAPSULE PO SCH ×2 (09:16→20:44)
[2019-09-07] MEDS: LOSARTAN 50 MG TABLET PO SCH (09:17)
[2019-09-07] MEDS: MECLIZINE 25 MG TABLET PO SCH ×4 (09:17→20:43)
[2019-09-07] MEDS: METOPROLOL SUCCINATE XL 100 MG TABLET PO SCH ×2 (09:21→20:44)
[2019-09-07] MEDS: PANTOPRAZOLE 40 MG VIAL IV SCH (10:23)
[2019-09-07] MEDS ORDERED: POLYVINYL ALCOHOL 1.4% OPH SOLN 15 ML BOTTLE BOTH EYES PRN (13:59)
[2019-09-07] MEDS: DILTIAZEM 60 MG TABLET PO SCH (20:43)
[2019-09-07] MEDS: hydrALAZINE 20 MG/1 ML VIAL IV PRN (20:45)
[2019-09-08] MEDS: LACTULOSE 20 GM/30 ML UDCUP PO SCH ×3 (00:37→09:30)
[2019-09-08] MEDS: ONDANSETRON 4 MG/2 ML VIAL IV SCH ×3 (02:37→18:59)
[2019-09-08] MEDS: ACETAMINOPHEN 325 MG TABLET PO PRN (05:29)
[2019-09-08 06:24] LABS: Calcium 8.8 MG/DL (8.5-10.1); Osmolality,Calculated 273.2 MOS/KG (273-304)
[2019-09-08] MEDS: ENOXAPARIN 40 MG/0.4 ML SYRINGE SUBCUT SCH (09:26)
[2019-09-08] MEDS: PANTOPRAZOLE 40 MG TABLET PO SCH (09:26)
[2019-09-08] MEDS: LOSARTAN 50 MG TABLET PO SCH (09:26)
[2019-09-08] MEDS: MECLIZINE 25 MG TABLET PO SCH ×4 (09:26→21:17)
[2019-09-08] MEDS: DOCUSATE SODIUM 100 MG CAPSULE PO SCH ×2 (09:27→21:17)
[2019-09-08] MEDS: DILTIAZEM 60 MG TABLET PO SCH ×2 (09:27→21:16)
[2019-09-08] MEDS: METOPROLOL SUCCINATE XL 100 MG TABLET PO SCH ×2 (09:27→21:17)
[2019-09-08] MEDS: INSULIN LISPRO 100 UNIT/ML SUBCUT SCH ×4 (09:28→21:14)
[2019-09-08] MEDS: DIAZEPAM 2 MG TABLET PO SCH (09:28)
[2019-09-08] MEDS: POLYETHYLENE GLYCOL POWDER 17 GM PACK PO SCH (09:30)
[2019-09-08] MEDS ORDERED: DIAZEPAM 2 MG TABLET PO PRN (11:21)
[2019-09-08] MEDS ORDERED: LACTULOSE 20 GM/30 ML UDCUP PO PRN (11:21)
[2019-09-09] MEDS: ONDANSETRON 4 MG/2 ML VIAL IV SCH ×3 (02:55→21:37)
[2019-09-09] MEDS: hydrALAZINE 20 MG/1 ML VIAL IV PRN ×2 (04:10→11:13)
[2019-09-09] MEDS: INSULIN LISPRO 100 UNIT/ML SUBCUT SCH ×4 (08:52→21:36)
[2019-09-09] MEDS: LOSARTAN 50 MG TABLET PO SCH (08:53)
[2019-09-09] MEDS: DILTIAZEM 60 MG TABLET PO SCH ×2 (08:53→21:36)
[2019-09-09] MEDS: ENOXAPARIN 40 MG/0.4 ML SYRINGE SUBCUT SCH (08:53)
[2019-09-09] MEDS: DOCUSATE SODIUM 100 MG CAPSULE PO SCH ×2 (08:54→21:37)
[2019-09-09] MEDS: POLYETHYLENE GLYCOL POWDER 17 GM PACK PO SCH (08:54)
[2019-09-09] MEDS: MECLIZINE 25 MG TABLET PO SCH ×4 (08:54→21:36)
[2019-09-09] MEDS: METOPROLOL SUCCINATE XL 100 MG TABLET PO SCH ×2 (08:54→21:36)
[2019-09-09] MEDS: PANTOPRAZOLE 40 MG TABLET PO SCH (08:54)
[2019-09-09] MEDS: ACETAMINOPHEN 325 MG TABLET PO PRN (11:31)
[2019-09-09] MEDS: ASPIRIN EC 81 MG TABLET PO SCH (13:42)
[2019-09-09] MEDS: hydrALAZINE 25 MG TABLET PO SCH ×3 (13:42→21:37)
[2019-09-09] MEDS: CLOPIDOGREL 75 MG TABLET PO SCH (13:42)
[2019-09-10 04:53] LABS: Basophils % 0.4 % (0.0-0.8); Eosinophils # 0.2 10*3/uL (0.0-0.87); Hematocrit 38.5 VOL% (35.7-47.0); Hemoglobin 12.2 GM/DL (12.0-16.0); Immature Granulocytes % 0.5 %; Immature Granulocytes Absolute 0.04 #; Lymphocytes # 1.7 10*3/uL (1.4-4.0); Lymphocytes % 21.1 % (21.3-54.2); Mean Corpuscular HGB Conc 31.7 GM/DL (32-36); Mean Corpuscular Volume 77.5 FL (87-102); Mean Platelet Volume 9.8 FL (9.6-12.0); Monocytes % 8.2 % (1.7-12.7); Neutrophils % 67.8 % (38.7-73.9); Platelet Count 241 T/CUMM (130-400); Red Blood Count 4.97 MC/CUMM (3.8-5.5); Red Cell Distribution Width 15.7 % (9.3-17.3)
[2019-09-10] MEDS: ONDANSETRON 4 MG/2 ML VIAL IV SCH ×3 (05:02→19:42)
[2019-09-10 05:11] LABS: Calcium 8.7 MG/DL (8.5-10.1); Osmolality,Calculated 268.7 MOS/KG (273-304)
[2019-09-10] MEDS ORDERED: diphenhydrAMINE CAP 25 MG CAPSULE PO ONE (08:33)
[2019-09-10] MEDS ORDERED: LORazepam 2 MG/1 ML VIAL IV ONE (08:35)
[2019-09-10] MEDS ORDERED: POTASSIUM CHLORIDE 20 MEQ TABLET PO ONE (09:02)
[2019-09-10] MEDS: DILTIAZEM 60 MG TABLET PO SCH ×2 (09:51→20:39)
[2019-09-10] MEDS: MECLIZINE 25 MG TABLET PO SCH ×4 (09:51→20:39)
[2019-09-10] MEDS: INSULIN LISPRO 100 UNIT/ML SUBCUT SCH ×4 (09:51→20:45)
[2019-09-10] MEDS: LOSARTAN 50 MG TABLET PO SCH (09:51)
[2019-09-10] MEDS: CLOPIDOGREL 75 MG TABLET PO SCH (09:51)
[2019-09-10] MEDS: ENOXAPARIN 40 MG/0.4 ML SYRINGE SUBCUT SCH (09:51)
[2019-09-10] MEDS: PANTOPRAZOLE 40 MG TABLET PO SCH (09:52)
[2019-09-10] MEDS: DOCUSATE SODIUM 100 MG CAPSULE PO SCH ×2 (09:52→20:39)
[2019-09-10] MEDS: POLYETHYLENE GLYCOL POWDER 17 GM PACK PO SCH (09:52)
[2019-09-10] MEDS: METOPROLOL SUCCINATE XL 100 MG TABLET PO SCH ×2 (09:52→20:39)
[2019-09-10] MEDS: hydrALAZINE 25 MG TABLET PO SCH (09:52)
[2019-09-10] MEDS: ASPIRIN EC 81 MG TABLET PO SCH (09:59)
[2019-09-10] MEDS: hydrALAZINE 20 MG/1 ML VIAL IV PRN (13:03)
[2019-09-10] MEDS: APIXABAN 5 MG TABLET PO SCH (20:38)
[2019-09-10] MEDS ORDERED: DOXAZOSIN 1 MG TABLET PO SCH (21:00)
[2019-09-11] MEDS: ONDANSETRON 4 MG/2 ML VIAL IV SCH ×2 (03:59→12:32)
[2019-09-11 05:24] LABS: Calcium 8.9 MG/DL (8.5-10.1); Osmolality,Calculated 268.7 MOS/KG (273-304)
[2019-09-11] MEDS: BUTALBITAL/ACETAMIN/CAFFEINE 50-325-40 MG TABLET PO PRN ×2 (05:34→15:49)
[2019-09-11] MEDS: hydrALAZINE 20 MG/1 ML VIAL IV PRN (05:37)
[2019-09-11] MEDS: DOCUSATE SODIUM 100 MG CAPSULE PO SCH (09:16)
[2019-09-11] MEDS: METOPROLOL SUCCINATE XL 100 MG TABLET PO SCH (09:17)
[2019-09-11] MEDS: MECLIZINE 25 MG TABLET PO SCH ×2 (09:17→12:34)
[2019-09-11] MEDS: LOSARTAN 50 MG TABLET PO SCH (09:18)
[2019-09-11] MEDS: DILTIAZEM 60 MG TABLET PO SCH (09:18)
[2019-09-11] MEDS: ASPIRIN EC 81 MG TABLET PO SCH (09:19)
[2019-09-11] MEDS: PANTOPRAZOLE 40 MG TABLET PO SCH (09:19)
[2019-09-11] MEDS: POLYETHYLENE GLYCOL POWDER 17 GM PACK PO SCH (09:19)
[2019-09-11] MEDS: APIXABAN 5 MG TABLET PO SCH (09:19)
[2019-09-11] MEDS: INSULIN LISPRO 100 UNIT/ML SUBCUT SCH ×3 (10:36→17:53)
[2019-09-11 17:08] VITALS: BP 148/67
== END 2019-09-11 16:49 | DRG 65 ==
LOC: EDBD → EDUNIT# → N.ED 19:55 → N.EDINP 19:55 → N.TELES 09-05 02:38 → SUATTDRO 09-07 12:41 → N.4E 09-10 18:51
PROVIDERS: ADMIT Internal Medicine; ATTEND Hospitalist